=== PATIENT | male | born 1965 | race Two or more races ===

== ENCOUNTER 2016-10-13 16:20 | Inpatient (IN) | payer OTHER ==
[2016-10-13 18:13] VITALS: BMI 22.9
--- NOTE | 2016-10-13 19:06 | HP ---
COWS - Scale Resting Pulse: 1= [place] 81-100 Sweatin= Chills/Flushing Restless Observation: 1= Difficult to Sit Still Pupil Size: 0= Normal to Room Light Bone or Joint Aches: 1= Mild Discomfort Runny Nose/ Eye Tearin= Nasal Congestion GI Upset > 30mins: 2= Nausea/Diarrhea Tremor Observation: 2= Slight Tremor Visible Yawning Observation: 0= None Anxiety or Irritability: 2=Irritable/Anxious Goose Flesh Skin: 3=Piloerection COWS Score: 14 Admission ROS S - HPI Chief Complaint: withdrawal sx Allergies/Adverse Reactions: Allergies Allergy/AdvReac Type Severity Reaction Status Date / Time amoxicillin Allergy Vomiting Verified 10/13/16 19:09 History of Present Illness: 51 years old male with long history of opiate nicotine dependence, has positive ppd - treated, asthma and depression is admitted to detox Exam Limitations: No Limitations - Ebola screening Have you traveled outside of the country in the last 21 days: No Have you had contact with anyone from an Ebola affected area: No Have you been sick,other than usual withdrawal symptoms: No Do you have a fever: No - Review of Systems Constitutional: Loss of Appetite, Changes in sleep, Unintentional Wgt. Loss, Unexplained wgt Loss EENT: reports: No Symptoms Reported Respiratory: reports: No Symptoms reported Cardiac: reports: No Symptoms Reported GI: reports: Nausea, Poor Appetite, Poor Fluid Intake, Abdominal cramping : reports: No Symptoms Reported, Other (kidney stone 2012 - resolved) Musculoskeletal: reports: Back Pain, Joint Pain, Muscle Pain, Neck Pain Neuro: reports: Tremors Endocrine: reports: No Symptoms Reported Hematology: reports: No Symptoms Reported Psychiatric: reports: Judgement Intact, Orientated x3, Depressed Other Systems: Reviewed and Negative Patient History - Patient Medical History Hx Anemia: No Hx Asthma: Yes Hx Chronic Obstructive Pulmonary Disease (COPD): No Hx Cancer: No Hx Cardiac Disorders: No Hx Congestive Heart Failure: No Hx Hypertension: No Hx Hypercholesterolemia: No Hx Pacemaker: No HX Cerebrovascular Accident: No Hx Seizures: No Hx Dementia: No Hx Diabetes: No Hx Gastrointestinal Disorders: No Hx Liver Disease: No Hx Genitourinary Disorders: No Hx Sexually Transmitted Disorders: No Hx Renal Disease (ESRD): No Hx Thyroid Disease: No Hx Human Immunodeficiency Virus (HIV): No Hx Hepatitis C: No Hx Depression: Yes Hx Suicide Attempt: No (denies) Hx Bipolar Disorder: No Hx Schizophrenia: No - Patient Surgical History Past Surgical History: Yes Hx Neurologic Surgery: No Hx Cataract Extraction: No Hx Cardiac Surgery: No Hx Lung Surgery: No Hx Breast Surgery: No Hx Breast Biopsy: No Hx Abdominal Surgery: No Hx Appendectomy: No Hx Cholecystectomy: No Hx Genitourinary Surgery: No Hx Orthopedic Surgery: Yes (jaw fx06/2016) Anesthesia Reaction: No - PPD History Previous Implant?: Yes Documented Results: Positive w/o proof Implanted On Prior [facility] Admission?: No PPD to be Administered?: No - Smoking Cessation Smoking history: Current every day smoker Have you smoked in the past 12 months: Yes Aproximately how many cigarettes per day: 10 Cigars Per Day: 0 Hx Chewing Tobacco Use: No Initiated information on smoking cessation: Yes 'Breaking Loose' booklet given: 10/13/16 - Substance & Tx. History Hx Alcohol Use: No Hx Substance Use: Yes Substance Use Type: Marijuana, Opiates Hx Substance Use Treatment: Yes (08/28/16 [facility] - Substances Abused Heroin Route: Inhalation Frequency: Daily Amount used: 8 bags Age of first use: 46 Date of Last Use: 10/13/16 Family Disease History - Family Disease History Family Disease History: Other: Father (alcohol,), Mother (alcohol, ), Brother (no contact) Admission Physical Exam BHS - Vital Signs Vital Signs: Vital Signs - 24 hr 10/13/16 18:06 Temperature 96.5 F L Pulse Rate 94 H Respiratory 18 Rate Blood Pressure 122/81 - Physical General Appearance: Yes: Appropriately Dressed, Mild Distress, Thin, Tremorous, Irritable, Sweating, Anxious HEENTM: Yes: Hearing grossly Normal, Normal ENT Inspection, Normocephalic, Normal Voice Respiratory: Yes: Chest Non-Tender, Lungs Clear, Normal Breath Sounds, No Respiratory Distress, No Accessory Muscle Use Neck: Yes: Supple, Trachea in good position Breast: Yes: Breasts Symetrical Cardiology: Yes: Regular Rhythm, S1, S2, Tachycardia Abdominal: Yes: Normal Bowel Sounds, Non Tender, Soft Genitourinary: Yes: Within Normal Limits Back: Yes: Normal Inspection Musculoskeletal: Yes: full range of Motion, Gait Steady, Back pain, Muscle Pain Extremities: Yes: Normal Inspection, Normal Range of Motion, Non-Tender, Tremors Neurological: Yes: Fully Oriented, Alert, Motor Strength 5/5, Normal Response, Depressed Affect Integumentary: Yes: Warm Lymphatic: Yes: Within Normal Limits - Diagnostic (1) Asthma Current Visit: Yes Status: Chronic Qualifiers: Asthma severity: mild intermittent Asthma complication type: with status asthmaticus Qualified Code(s): J45.22 - Mild intermittent asthma with status asthmaticus (2) Nicotine dependence Current Visit: Yes Status: Acute Qualifiers: Nicotine product type: cigarettes Substance use status: in withdrawal Qualified Code(s): F17.213 - Nicotine dependence, cigarettes, with withdrawal (3) Opioid dependence with withdrawal Current Visit: Yes Status: Acute (4) Weight loss Current Visit: Yes Status: Acute (5) Positive PPD, treated Current Visit: Yes Status: Resolved (6) Depression (emotion) Current Visit: Yes Status: Suspected Qualifiers: Depression Type: dysthymia Qualified Code(s): F34.1 - Dysthymic disorder Cleared for Admission [facility] - Detox or Rehab [facility] Level of Care: Medically Managed Detox Regimen/Protocol: Methadone [facility] Breath Alcohol Content Breath Alcohol Content: 0 Urine Drug Screen - Results Drug Screen Negative: No Urine Drug Screen Results: THC-Marijuana, OPI-Opiates, MTD-Methadone
[2016-10-13] MEDS ORDERED: guaiFENesin/D-METHORPHAN HB 10 ML UNIT-DOSE CUPS PO PRN (19:14)
[2016-10-13] MEDS ORDERED: LOPERAMIDE HCL 2 MG CAPSULE PO PRN (19:14)
[2016-10-13] MEDS ORDERED: ACETAMINOPHEN 325 MG TABLET (FP) PO PRN (19:14)
[2016-10-13] MEDS ORDERED: MAGNESIUM CITRATE 300 ML BOTTLE PO PRN (19:14)
[2016-10-13] MEDS ORDERED: MAG HYDROX/AL HYDROX/SIMETH 30 ML UNIT-DOSE CUP PO PRN (19:14)
[2016-10-13] MEDS ORDERED: MAGNESIUM HYDROX 2400MG/30ML ORAL SUSPENSION 30 ML CUP PO PRN (19:14)
[2016-10-13] MEDS ORDERED: METHADONE HCL 10 MG TABLET (FOR DETOX USE ONLY) PO ONE ×3 (19:14→23:00)
[2016-10-13] MEDS ORDERED: MENTHOL/PHENOL 1 EACH UD MM PRN (19:14)
[2016-10-13] MEDS ORDERED: IBUPROFEN 400 MG TABLET (FP) PO PRN (19:14)
[2016-10-13] MEDS ORDERED: P-EPHED 60MG/TRIPROLIDI 2.5MG TABLET PO PRN (19:14)
[2016-10-13] MEDS ORDERED: ALBUTEROL SO4 6.7 GM HFA INHALER IH PRN (19:16)
[2016-10-13] MEDS: diphenhydrAMINE HCL 50 MG CAPSULE PO PRN (22:28)
[2016-10-13] MEDS: diazePAM 5 MG TABLET PO PRN (22:28)
[2016-10-13] MEDS: THIAMINE HCL 100 MG TABLET (FP) PO SCH (22:52)
[2016-10-13] MEDS: NICOTINE POLACRILEX 2 MG GUM BUC PRN (23:05)
[2016-10-13 23:07] LABS: URINE APPEARANCE SLCLOUDY; URINE BILIRUBIN NEGATIVE (NEGATIVE); URINE BLOOD NEGATIVE (NEGATIVE); URINE COLOR AMBER; URINE GLUCOSE (UA) NEGATIVE (NEGATIVE); URINE KETONE TRACE (NEGATIVE); URINE LEUK ESTERASE NEGATIVE (NEGATIVE); URINE NITRITE NEGATIVE (NEGATIVE)
[2016-10-13 23:19] LABS: URINE PROTEIN 1+ (NEGATIVE)
[2016-10-13 23:31] LABS: CALCIUM OXALATE CRYSTALS RARE /hpf (NONE SEEN); URINE MUCUS MANY; URINE RBC 19 /hpf (0-3); URINE WBC 1 /hpf (3-5)
--- NOTE | 2016-10-14 09:40 | CONSULT ---
[facility] Psychiatric Consult - Data Date of interview: 10/14/16 Admission source: [facility] Identifying data: This is 51 years old male with psychiatric hospitalization history, intoxicated with: Alcohol, Heroin, Nicotine, with history of Xanax and Cannabis abuse. Substance Abuse History: - Smoking Cessation. Smoking history: Current every day smoker. Have you smoked in the past 12 months: Yes. Aproximately how many cigarettes per day: 10. Cigars Per Day: 0. Hx Chewing Tobacco Use: No. Initiated information on smoking cessation: Yes. 'Breaking Loose' booklet given : 10/13/16. - Substance & Tx. History. Hx Alcohol Use: No. Hx Substance Use: Yes. Substance Use Type: Marijuana, Opiates. Hx Substance Use Treatment: Yes ( 08/28/16 [facility]). - Substances Abused. Heroin. Route: Inhalation. Frequency: Daily. Amount used: 8 bags. Age of first use: 46. Date of Last Use : 10/13/16 Medical History: Weight loss history, Asthma, HIV+, PPD+ history Psychiatric History: Patient reprotsd hoistory of depression, insomnia, reports most recent psychiatrioc admission on 2010 at [facility] for safety, reports taking prior to admission: Seroquel 100mg po qhs Physical/Sexual Abuse/Trauma History: Denies Additional Comment: Seroquel 100mg po qhs Mental Status Exam - Mental Status Exam Alert and Oriented to: Person Cognitive Function: Fair Mood: Sad Affect: Flat Patient Behavior: Sedated Speech Pattern: Delayed Voice Loudness: Mildly Soft/Quiet Thought Process: Circumstantial Thought Disorder: Being Controlled Hallucinations: Denies Suicidal Ideation: Denies Homicidal Ideation: Denies Insight/Judgement: Fair Sleep: Difficulty falling asleep Appetite: Weight loss Muscle strength/Tone: Mild Hypotonicity Gait/Station: Shuffling Additional Comments: Seroquel 100mg po qhs Psychiatric Findings - Problem List ([place] 1, 2,3) (1) Nicotine dependence Current Visit: Yes Status: Acute Qualifiers: Nicotine product type: cigarettes Substance use status: in withdrawal Qualified Code(s): F17.213 - Nicotine dependence, cigarettes, with withdrawal (2) Opioid dependence with withdrawal Current Visit: Yes Status: Acute (3) Depression (emotion) Current Visit: Yes Status: Suspected Qualifiers: Depression Type: dysthymia Qualified Code(s): F34.1 - Dysthymic disorder (4) Alcohol dependence with uncomplicated withdrawal Current Visit: No Status: Chronic (5) Cannabis dependence Current Visit: No Status: Chronic (6) Sedative, hypnotic or anxiolytic dependence with withdrawal, uncomplicated Current Visit: No Status: Chronic (7) Drug-induced mood disorder Current Visit: Yes Status: Acute - Initial Treatment Plan Initial Treatment Plan: Seroquel 100mg po qhs
[2016-10-14] MEDS ORDERED: METHADONE HCL 10 MG TABLET (FOR DETOX USE ONLY) PO ONE (10:00)
[2016-10-14] MEDS: PRENATAL VITAMINS W/ FOLIC ACID TABLET (FP) PO SCH (10:05)
[2016-10-14] MEDS: NICOTINE 14 MG/24 HOURS TOPICAL PATCH TD SCH (10:06)
[2016-10-14] MEDS: NICOTINE POLACRILEX 2 MG GUM BUC PRN ×4 (10:06→20:57)
[2016-10-14 10:07] LABS: MCH 30.1 pg (25.7-33.7); MCHC 33.7 g/dl (32.0-35.9); MEAN CELL VOLUME 89.3 fl (80-96); MEAN PLT VOLUME 7.6 fl (7.5-11.1); PLATELET COUNT 229 K/MM3 (134-434); RDW 13.6 % (11.9-15.9); WHITE BLOOD COUNT 4.9 K/mm3 (4.0-10.0)
[2016-10-14 10:28] LABS: ALBUMIN 3.5 g/dl (3.4-5.0); ALK PHOS 71 U/L (45-117); ANION GAP 8 (8-16); BILIRUBIN,TOTAL 0.7 mg/dL (0.2-1.0); CALCIUM 8.7 mg/dL (8.5-10.1); CO2 28 mmol/L (21-32); CREATININE 0.9 mg/dL (0.7-1.3); GLUCOSE,RANDOM 90 mg/dL (74-106); SGOT/AST 22 U/L (15-37); SGPT/ALT 25 U/L (12-78); TOT PROT 6.8 g/dl (6.4-8.2)
--- NOTE | 2016-10-14 11:29 | PN ---
BHS COWS - Scale Resting Pulse: 1= [place] 81-100 Sweatin= Chills/Flushing Restless Observation: 1= Difficult to Sit Still Pupil Size: 1= Pupils >than Normal Bone or Joint Aches: 1= Mild Discomfort Runny Nose/ Eye Tearin= Nasal Congestion GI Upset > 30mins: 2= Nausea/Diarrhea Tremor Observation of Outstretched Hands: 2= Slight Tremor Visible Yawning Observation: 1= 1-2x During Session Anxiety or Irritability: 2=Irritable/Anxious Goose Flesh Skin: 3=Piloerection COWS Score: 16 BHS Progress Note (SOAP) Subjective: nausea, sweats, interrupted sleep, anxiety, tremors, body aches Objective: 10/14/16 11:28 Vital Signs - 8 hr 10/14/16 10/14/16 10/14/16 03:30 06:21 09:46 Temperature 96.8 F L 97.9 F Pulse Rate 70 84 Respiratory 18 18 20 Rate Blood Pressure 128/78 123/71 Laboratory Tests 10/13/16 10/14/16 10/14/16 22:40 07:00 07:00 WBC 4.9 RBC 4.68 Hgb 14.1 Hct 41.8 MCV 89.3 MCH 30.1 MCHC 33.7 RDW 13.6 Plt Count 229 MPV 7.6 D Sodium 138 Potassium 3.7 Chloride 102 Carbon Dioxide 28 Anion Gap 8 BUN 15 D Creatinine 0.9 Creat Clearance w eGFR > 60 Random Glucose 90 Calcium 8.7 Total Bilirubin 0.7 D AST 22 D ALT 25 D Alkaline Phosphatase 71 Total Protein 6.8 Albumin 3.5 Urine Color Barb Urine Appearance Slcloudy Urine pH 5.0 Ur Specific [place] >= 1.030 H Urine Protein 1+ H Urine Glucose (UA) Negative Urine Ketones Trace H Urine Blood Negative Urine Nitrite Negative Urine Bilirubin Negative Urine Urobilinogen 2.0 Ur Leukocyte Esterase Negative Urine RBC 19 Urine WBC 1 Calcium Oxalate Crystal Rare Urine Mucus Many Assessment: 10/14/16 11:28 withdrawal sx, Plan: cont detox, fluids, encourage ambulation
--- NOTE | 2016-10-14 12:43 | EKG ---
Test Reason : Blood Pressure : / mmHG Vent. Rate : 075 BPM Atrial Rate : 075 BPM P-R Int : 188 ms QRS Dur : 086 ms QT Int : 370 ms P-R-T Axes : 066 088 058 degrees QTc Int : 413 ms NORMAL SINUS RHYTHM NORMAL ECG NO PREVIOUS ECGS AVAILABLE Confirmed by ISMAEL LY, MINDY ([id number]) on 10/14/2016 12:42:58 PM Referred By: Saeid Jason Confirmed By:MINDY GUEVARA MD
[2016-10-14] MEDS: diazePAM 5 MG TABLET PO PRN (22:03)
[2016-10-14] MEDS: QUEtiapine FUMARATE 100 MG TABLET (FP) PO SCH (22:03)
[2016-10-14] MEDS: THIAMINE HCL 100 MG TABLET (FP) PO SCH (22:03)
[2016-10-15] MEDS ORDERED: METHADONE HCL 5 MG TABLET (FOR DETOX USE ONLY) PO ONE (10:00)
[2016-10-15] MEDS: PRENATAL VITAMINS W/ FOLIC ACID TABLET (FP) PO SCH (10:05)
[2016-10-15] MEDS: NICOTINE 14 MG/24 HOURS TOPICAL PATCH TD SCH (10:06)
[2016-10-15] MEDS: diazePAM 5 MG TABLET PO PRN (10:06)
[2016-10-15] MEDS: NICOTINE POLACRILEX 2 MG GUM BUC PRN ×3 (11:36→20:10)
--- NOTE | 2016-10-15 12:59 | PN ---
BHS COWS - Scale Resting Pulse: 1= [place] 81-100 Sweatin= Chills/Flushing Restless Observation: 1= Difficult to Sit Still Pupil Size: 1= Pupils >than Normal Bone or Joint Aches: 1= Mild Discomfort Runny Nose/ Eye Tearin= Nasal Congestion GI Upset > 30mins: 2= Nausea/Diarrhea Tremor Observation of Outstretched Hands: 1= Tremor [place], Not Seen Yawning Observation: 1= 1-2x During Session Anxiety or Irritability: 2=Irritable/Anxious Goose Flesh Skin: 3=Piloerection COWS Score: 15 BHS Progress Note (SOAP) Subjective: nausea, sweats, interrutped sleep, anxiety, tremors Objective: 10/15/16 12:58 Vital Signs - 24 hr 10/14/16 10/14/16 10/14/16 14:14 16:55 22:00 Temperature 97.7 F 97.7 F 97.7 F Pulse Rate 82 77 74 Respiratory 20 18 18 Rate Blood Pressure 115/71 132/79 122/78 10/15/16 10/15/16 10/15/16 00:30 03:30 06:17 Temperature 97.6 F Pulse Rate 75 Respiratory 18 18 18 Rate Blood Pressure 132/73 10/15/16 09:28 Temperature 97.2 F L Pulse Rate 87 Respiratory 18 Rate Blood Pressure 115/76 Laboratory Tests 10/13/16 10/13/16 10/14/16 07:00 22:40 07:00 WBC 4.9 RBC 4.68 Hgb 14.1 Hct 41.8 MCV 89.3 MCH 30.1 MCHC 33.7 RDW 13.6 Plt Count 229 MPV 7.6 D Sodium Potassium Chloride Carbon Dioxide Anion Gap BUN Creatinine Creat Clearance w eGFR Random Glucose Calcium Total Bilirubin AST ALT Alkaline Phosphatase Total Protein Albumin Urine Color Barb Urine Appearance Slcloudy Urine pH 5.0 Ur Specific [place] >= 1.030 H Urine Protein 1+ H Urine Glucose (UA) Negative Urine Ketones Trace H Urine Blood Negative Urine Nitrite Negative Urine Bilirubin Negative Urine Urobilinogen 2.0 Ur Leukocyte Esterase Negative Urine RBC 19 Urine WBC 1 Calcium Oxalate Crystal Rare Urine Mucus Many RPR Titer Hepatitis C Antibody <0.1 10/14/16 10/14/16 07:00 07:00 WBC RBC Hgb Hct MCV MCH MCHC RDW Plt Count MPV Sodium 138 Potassium 3.7 Chloride 102 Carbon Dioxide 28 Anion Gap 8 BUN 15 D Creatinine 0.9 Creat Clearance w eGFR > 60 Random Glucose 90 Calcium 8.7 Total Bilirubin 0.7 D AST 22 D ALT 25 D Alkaline Phosphatase 71 Total Protein 6.8 Albumin 3.5 Urine Color Urine Appearance Urine pH Ur Specific [place] Urine Protein Urine Glucose (UA) Urine Ketones Urine Blood Urine Nitrite Urine Bilirubin Urine Urobilinogen Ur Leukocyte Esterase Urine RBC Urine WBC Calcium Oxalate Crystal Urine Mucus RPR Titer Nonreactive Hepatitis C Antibody Assessment: 10/15/16 12:58 withdrwal sx Plan: cont detox
[2016-10-15] MEDS: QUEtiapine FUMARATE 100 MG TABLET (FP) PO SCH (22:07)
[2016-10-15] MEDS: THIAMINE HCL 100 MG TABLET (FP) PO SCH (22:07)
[2016-10-16] MEDS: NICOTINE POLACRILEX 2 MG GUM BUC PRN ×4 (08:23→22:04)
[2016-10-16] MEDS ORDERED: METHADONE HCL 5 MG TABLET (FOR DETOX USE ONLY) PO ONE (10:00)
[2016-10-16] MEDS: PRENATAL VITAMINS W/ FOLIC ACID TABLET (FP) PO SCH (10:10)
[2016-10-16] MEDS: NICOTINE 14 MG/24 HOURS TOPICAL PATCH TD SCH (10:10)
[2016-10-16] MEDS: diazePAM 5 MG TABLET PO PRN ×3 (10:10→18:57)
--- NOTE | 2016-10-16 11:06 | PN ---
BHS Progress Note (SOAP) Subjective: ALERT,IRRITABLE,ANXIOUS,INTERRUPTED SLEEP,TREMOR Objective: 10/16/16 11:05 10/16/16 11:05 Vital Signs Temperature 97.3 F L 10/16/16 09:56 Pulse Rate 86 10/16/16 09:56 Respiratory Rate 18 10/16/16 09:56 Blood Pressure 129/78 10/16/16 09:56 O2 Sat by Pulse Oximetry (%) Assessment: 10/16/16 11:05 WITHDRAWAL SYMPTOM Plan: CONTINUE DETOX
[2016-10-16] MEDS: QUEtiapine FUMARATE 100 MG TABLET (FP) PO SCH (22:03)
[2016-10-16] MEDS: diphenhydrAMINE HCL 50 MG CAPSULE PO PRN (22:03)
[2016-10-16] MEDS: THIAMINE HCL 100 MG TABLET (FP) PO SCH (22:03)
[2016-10-17] MEDS: NICOTINE POLACRILEX 2 MG GUM BUC PRN ×3 (07:34→20:43)
[2016-10-17] MEDS ORDERED: METHADONE HCL 10 MG TABLET (FOR DETOX USE ONLY) PO ONE (10:00)
[2016-10-17] MEDS: PRENATAL VITAMINS W/ FOLIC ACID TABLET (FP) PO SCH (10:04)
[2016-10-17] MEDS: NICOTINE 14 MG/24 HOURS TOPICAL PATCH TD SCH (10:04)
--- NOTE | 2016-10-17 10:44 | PN ---
BHS Progress Note (SOAP) Subjective: nausea, sweats, interrupted sleep, anxiety, tremors Objective: 10/17/16 10:43 Vital Signs - 8 hr 10/17/16 10/17/16 10/17/16 03:30 06:00 09:55 Temperature 96.8 F L 98.5 F Pulse Rate 86 97 H Respiratory 18 18 18 Rate Blood Pressure 119/75 128/83 Laboratory Tests 10/13/16 10/13/16 10/14/16 07:00 22:40 07:00 WBC 4.9 RBC 4.68 Hgb 14.1 Hct 41.8 MCV 89.3 MCH 30.1 MCHC 33.7 RDW 13.6 Plt Count 229 MPV 7.6 D Sodium Potassium Chloride Carbon Dioxide Anion Gap BUN Creatinine Creat Clearance w eGFR Random Glucose Calcium Total Bilirubin AST ALT Alkaline Phosphatase Total Protein Albumin Urine Color Barb Urine Appearance Slcloudy Urine pH 5.0 Ur Specific [place] >= 1.030 H Urine Protein 1+ H Urine Glucose (UA) Negative Urine Ketones Trace H Urine Blood Negative Urine Nitrite Negative Urine Bilirubin Negative Urine Urobilinogen 2.0 Ur Leukocyte Esterase Negative Urine RBC 19 Urine WBC 1 Calcium Oxalate Crystal Rare Urine Mucus Many RPR Titer Hepatitis C Antibody <0.1 10/14/16 10/14/16 07:00 07:00 WBC RBC Hgb Hct MCV MCH MCHC RDW Plt Count MPV Sodium 138 Potassium 3.7 Chloride 102 Carbon Dioxide 28 Anion Gap 8 BUN 15 D Creatinine 0.9 Creat Clearance w eGFR > 60 Random Glucose 90 Calcium 8.7 Total Bilirubin 0.7 D AST 22 D ALT 25 D Alkaline Phosphatase 71 Total Protein 6.8 Albumin 3.5 Urine Color Urine Appearance Urine pH Ur Specific [place] Urine Protein Urine Glucose (UA) Urine Ketones Urine Blood Urine Nitrite Urine Bilirubin Urine Urobilinogen Ur Leukocyte Esterase Urine RBC Urine WBC Calcium Oxalate Crystal Urine Mucus RPR Titer Nonreactive Hepatitis C Antibody Assessment: 10/17/16 10:43 withdrawal sx Plan: cont detox, fluids
[2016-10-17] MEDS: QUEtiapine FUMARATE 100 MG TABLET (FP) PO SCH (22:00)
[2016-10-17] MEDS: THIAMINE HCL 100 MG TABLET (FP) PO SCH (22:00)
[2016-10-17] MEDS: diphenhydrAMINE HCL 50 MG CAPSULE PO PRN (22:01)
[2016-10-18] MEDS: NICOTINE POLACRILEX 2 MG GUM BUC PRN ×2 (05:40→10:13)
[2016-10-18] MEDS ORDERED: METHADONE HCL 5 MG TABLET (FOR DETOX USE ONLY) PO ONE (06:00)
--- NOTE | 2016-10-18 08:50 | DS ---
[facility] Detox Discharge Summary Admission Date: 10/13/16 Discharge Date: 10/18/16 - History Present History: Alcohol Dependence, Cannabis Dependence, Opioid Dependence, Sedative Dependence Pertinent Past History: HIV, anxiety, depression, insomnia, nicotine dependence, asthma - Physical Exam Results Vital Signs: Vital Signs Temperature 97.7 F 10/18/16 06:11 Pulse Rate 88 10/18/16 06:11 Respiratory Rate 18 10/18/16 06:11 Blood Pressure 135/75 10/18/16 06:11 O2 Sat by Pulse Oximetry (%) Laboratory Tests 10/13/16 10/13/16 10/14/16 07:00 22:40 07:00 WBC 4.9 RBC 4.68 Hgb 14.1 Hct 41.8 MCV 89.3 MCH 30.1 MCHC 33.7 RDW 13.6 Plt Count 229 MPV 7.6 D Sodium Potassium Chloride Carbon Dioxide Anion Gap BUN Creatinine Creat Clearance w eGFR Random Glucose Calcium Total Bilirubin AST ALT Alkaline Phosphatase Total Protein Albumin Urine Color Barb Urine Appearance Slcloudy Urine pH 5.0 Ur Specific [place] >= 1.030 H Urine Protein 1+ H Urine Glucose (UA) Negative Urine Ketones Trace H Urine Blood Negative Urine Nitrite Negative Urine Bilirubin Negative Urine Urobilinogen 2.0 Ur Leukocyte Esterase Negative Urine RBC 19 Urine WBC 1 Calcium Oxalate Crystal Rare Urine Mucus Many RPR Titer Hepatitis C Antibody <0.1 10/14/16 10/14/16 07:00 07:00 WBC RBC Hgb Hct MCV MCH MCHC RDW Plt Count MPV Sodium 138 Potassium 3.7 Chloride 102 Carbon Dioxide 28 Anion Gap 8 BUN 15 D Creatinine 0.9 Creat Clearance w eGFR > 60 Random Glucose 90 Calcium 8.7 Total Bilirubin 0.7 D AST 22 D ALT 25 D Alkaline Phosphatase 71 Total Protein 6.8 Albumin 3.5 Urine Color Urine Appearance Urine pH Ur Specific [place] Urine Protein Urine Glucose (UA) Urine Ketones Urine Blood Urine Nitrite Urine Bilirubin Urine Urobilinogen Ur Leukocyte Esterase Urine RBC Urine WBC Calcium Oxalate Crystal Urine Mucus RPR Titer Nonreactive Hepatitis C Antibody Pertinent Admission Physical Exam Findings: withdrawal sx - Treatment Hospital Course: Detox Protocol Followed, Detoxed Safely, Responded well, Discharged Condition Good, Rehab Referral Accepted - Medication Discharge Medications: Ambulatory Orders Quetiapine Fumarate [Seroquel] 100 mg PO HS #30 tablet 10/14/16 Levalbuterol Tartrate [Xopenex Hfa] 15 gm IH PRN #1 aer.[email or web address] 10/18/16 - Diagnosis (1) Drug-induced mood disorder Current Visit: Yes Status: Acute (2) Nicotine dependence Current Visit: Yes Status: Chronic Qualifiers: Nicotine product type: cigarettes Substance use status: in withdrawal Qualified Code(s): F17.213 - Nicotine dependence, cigarettes, with withdrawal (3) Opioid dependence with withdrawal Current Visit: Yes Status: Chronic (4) Asthma Current Visit: Yes Status: Chronic Qualifiers: Asthma severity: mild intermittent Asthma complication type: with status asthmaticus Qualified Code(s): J45.22 - Mild intermittent asthma with status asthmaticus (5) Positive PPD, treated Current Visit: Yes Status: Resolved (6) Alcohol dependence with uncomplicated withdrawal Current Visit: No Status: Chronic (7) Cannabis dependence Current Visit: No Status: Chronic (8) HIV (human immunodeficiency virus infection) Current Visit: Yes Status: Chronic (9) Sedative, hypnotic or anxiolytic dependence with withdrawal, uncomplicated Current Visit: Yes Status: Chronic - AMA Did Patient Leave Against Medical Advice: No
[2016-10-18] MEDS: PRENATAL VITAMINS W/ FOLIC ACID TABLET (FP) PO SCH (10:11)
[2016-10-18] MEDS: NICOTINE 14 MG/24 HOURS TOPICAL PATCH TD SCH (10:11)
[2016-10-18 10:16] VITALS: BP 130/86; PULSE 98; TEMP 97.5
== END 2016-10-18 10:35 | disposition home or self-care (01) | DRG 773 ==
LOC: YASAS 16:20 → Y6N 20:31
PROVIDERS: ADMIT Internal Medicine Addiction Medicine; ATTEND Internal Medicine Addiction Medicine
PROC: HZ2ZZZZ Detoxification Services for Substance Abuse Treatment (ICD-10-PCS; principal; 2016-10-13)
DX: F11.23 Opioid dependence with withdrawal (principal); F13.230 Sedative, hypnotic or anxiolytic dependence with withdrawal, uncomplicated; F10.230 Alcohol dependence with withdrawal, uncomplicated; F12.20 Cannabis dependence, uncomplicated; F17.213 Nicotine dependence, cigarettes, with withdrawal; F19.24 Other psychoactive substance dependence with psychoactive substance-induced mood disorder; F34.1 Dysthymic disorder; J45.22 Mild intermittent asthma with status asthmaticus; Z21 Asymptomatic human immunodeficiency virus [HIV] infection status; R76.11 Nonspecific reaction to tuberculin skin test without active tuberculosis; Z88.1 Allergy status to other antibiotic agents; Z87.898 Personal history of other specified conditions
CPT/HCPCS: 36415; 71020-TC; 80053; 81003; 81015; 85027; 86593; 86803; 93005; 93010

== ENCOUNTER 2016-10-21 19:07 | Inpatient (IN) | payer OTHER ==
[2016-10-21 19:36] VITALS: BMI 24.5
--- NOTE | 2016-10-21 20:48 | HP ---
[facility] Rehab Assess/Revision - Admission History Admitted to Rehab from: [facility] Date of Admission to Rehab: 10/21/16 - Vital signs Vital Signs: Vital Signs Period Temp Pulse Resp BP Sys/Lyles Pulse Ox Last 24 Hr 96.3 F 88 18 156/103 - Findings Detox History & Physical reviewed: Yes Concur with findings: Yes Comments/Additional Findings: completed detox 10/18/16, admitted to rehab 10/21/16, hiv - no treatment, cigarettes - 10 daily, long history of asthma - treated with ventolin prn.
[2016-10-21] MEDS ORDERED: IBUPROFEN 400 MG TABLET (FP) PO PRN (21:35)
[2016-10-21] MEDS ORDERED: ACETAMINOPHEN 325 MG TABLET (FP) PO PRN (21:35)
[2016-10-21] MEDS ORDERED: hydrOXYzine PAMOATE 50 MG CAPSULE (FP) PO PRN (21:35)
[2016-10-21] MEDS ORDERED: MAGNESIUM HYDROX 2400MG/30ML ORAL SUSPENSION 30 ML CUP PO PRN (21:35)
[2016-10-21] MEDS ORDERED: P-EPHED 60MG/TRIPROLIDI 2.5MG TABLET PO PRN (21:35)
[2016-10-21] MEDS ORDERED: MENTHOL/PHENOL 1 EACH UD MM PRN (21:35)
[2016-10-21] MEDS ORDERED: guaiFENesin/D-METHORPHAN HB 10 ML UNIT-DOSE CUPS PO PRN (21:35)
[2016-10-21] MEDS ORDERED: MAG HYDROX/AL HYDROX/SIMETH 30 ML UNIT-DOSE CUP PO PRN (21:35)
[2016-10-21] MEDS ORDERED: MAGNESIUM CITRATE 300 ML BOTTLE PO PRN (21:35)
[2016-10-21] MEDS ORDERED: LOPERAMIDE HCL 2 MG CAPSULE PO PRN (21:35)
[2016-10-21] MEDS ORDERED: ALBUTEROL SO4 6.7 GM HFA INHALER IH PRN (21:37)
[2016-10-21] MEDS: diphenhydrAMINE HCL 50 MG CAPSULE PO PRN (23:49)
[2016-10-21] MEDS: THIAMINE HCL 100 MG TABLET (FP) PO SCH (23:49)
[2016-10-22] MEDS: PRENATAL VITAMINS W/ FOLIC ACID TABLET (FP) PO SCH (10:18)
[2016-10-22] MEDS: NICOTINE POLACRILEX 2 MG GUM BC PRN (10:19)
[2016-10-22] MEDS: NICOTINE 14 MG/24 HOURS TOPICAL PATCH TD SCH (10:20)
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
--- NOTE | 2016-10-22 12:32 | EKG ---
Test Reason : Blood Pressure : / mmHG Vent. Rate : 070 BPM Atrial Rate : 070 BPM P-R Int : 198 ms QRS Dur : 086 ms QT Int : 384 ms P-R-T Axes : 063 084 060 degrees QTc Int : 414 ms NORMAL SINUS RHYTHM NORMAL ECG WHEN COMPARED WITH ECG OF 13-OCT-2016 21:33, NO SIGNIFICANT CHANGE WAS FOUND Confirmed by FABIAN MIKE MD ([id number]) on 10/22/2016 12:31:36 PM Referred By: Confirmed By:FABIAN MIKE MD
[2016-10-22] MEDS: diphenhydrAMINE HCL 50 MG CAPSULE PO PRN (21:16)
[2016-10-22] MEDS: traZODone HCL 100 MG TABLET (FP) PO SCH (21:16)
[2016-10-22] MEDS: THIAMINE HCL 100 MG TABLET (FP) PO SCH (21:16)
[2016-10-23] MEDS: PRENATAL VITAMINS W/ FOLIC ACID TABLET (FP) PO SCH (10:08)
[2016-10-23] MEDS: NICOTINE 14 MG/24 HOURS TOPICAL PATCH TD SCH (10:18)
[2016-10-23] MEDS ORDERED: CYCLOBENZAPRINE HCL 10 MG TABLET (FP) PO PRN (14:05)
[2016-10-23] MEDS ORDERED: cloNIDine HCL 0.1 MG TABLET PO ONE (15:00)
[2016-10-23] MEDS: traZODone HCL 100 MG TABLET (FP) PO SCH (21:06)
[2016-10-23] MEDS: diphenhydrAMINE HCL 50 MG CAPSULE PO PRN (21:06)
[2016-10-23] MEDS: THIAMINE HCL 100 MG TABLET (FP) PO SCH (21:06)
[2016-10-23] MEDS: cloNIDine HCL 0.1 MG TABLET PO SCH (21:06)
[2016-10-23] MEDS: NICOTINE POLACRILEX 2 MG GUM BC PRN (21:09)
[2016-10-24 06:57] VITALS: TEMP 98.7
[2016-10-24] MEDS ORDERED: PATIENT'S OWN MEDICATION (NON-FORMULARY) (Darunavir Ethanolate [Prezista -] 800 MG) PO SCH (10:00)
[2016-10-24 10:03] VITALS: BP 141/99; PULSE 94
[2016-10-24] MEDS: NICOTINE POLACRILEX 2 MG GUM BC PRN (10:03)
[2016-10-24] MEDS: PRENATAL VITAMINS W/ FOLIC ACID TABLET (FP) PO SCH (10:03)
[2016-10-24] MEDS: NICOTINE 14 MG/24 HOURS TOPICAL PATCH TD SCH (10:03)
[2016-10-24] MEDS: cloNIDine HCL 0.1 MG TABLET PO SCH (10:03)
--- NOTE | 2016-10-24 15:35 | PN ---
[facility] Progress Note Note: Psychiatry Attending's note : Called earlier by nurse Kenna Portillo. Issue : Mr Garcia decided to leave the program. Patient was instructed to await psychiatric evaluation. Refused and left the unit.Refer to staff's notes for details. Declined scripts.
== END 2016-10-24 12:45 | disposition left against medical advice (07) | DRG 770 ==
LOC: YASAS 19:07 → Y3W 20:38
PROVIDERS: ADMIT Psychiatry & Neurology Psychiatry; ATTEND Psychiatry & Neurology Psychiatry
PROC: HZ42ZZZ Group Counseling for Substance Abuse Treatment, Cognitive-Behavioral (ICD-10-PCS; principal; 2016-10-21)
DX: F11.20 Opioid dependence, uncomplicated (principal); F12.20 Cannabis dependence, uncomplicated; F17.213 Nicotine dependence, cigarettes, with withdrawal; F19.24 Other psychoactive substance dependence with psychoactive substance-induced mood disorder; F19.282 Other psychoactive substance dependence with psychoactive substance-induced sleep disorder; J45.22 Mild intermittent asthma with status asthmaticus; Z21 Asymptomatic human immunodeficiency virus [HIV] infection status
CPT/HCPCS: 93005; 93010

== ENCOUNTER 2017-01-28 08:14 | Inpatient (IN) | payer OTHER ==
[2017-01-28 09:39] VITALS: BMI 23.5
--- NOTE | 2017-01-28 12:45 | HP ---
COWS - Scale Resting Pulse: 1= OK 81-100 Sweatin=Flushed/Facial Moisture Restless Observation: 1= Difficult to Sit Still Pupil Size: 0= Normal to Room Light Bone or Joint Aches: 2= Severe Diffuse Aches Runny Nose/ Eye Tearin= Runny Nose/Eyes GI Upset > 30mins: 2= Nausea/Diarrhea Tremor Observation: 2= Slight Tremor Visible Yawning Observation: 2= >3x During Session Anxiety or Irritability: 2=Irritable/Anxious Goose Flesh Skin: 3=Piloerection COWS Score: 19 CIWA Score - CIWA Score Nausea/Vomitin-Mild Nausea/No Vomiting Muscle Tremors: 4-Moderate,w/Arms Extend Anxiety: 4-Mod. Anxious/Guarded Agitation: 4-Moderately Restless Paroxysmal Sweats: 3 Orientation: 0-Oriented Tacttile Disturbances: 0-None Auditory Disturbances: 0-None Visual Disturbances: 0-None Headache: 0-None Present CIWA-Ar Total Score: 16 Admission ROS S - HPI Chief Complaint: I am here for detox and get it right. Allergies/Adverse Reactions: Allergies Allergy/AdvReac Type Severity Reaction Status Date / Time amoxicillin Allergy Vomiting Verified 01/28/17 09:59 History of Present Illness: pt is a 51yr old male with a history of alcohol and heroin dependence seeking detox for treatment. Exam Limitations: No Limitations - Ebola screening Have you traveled outside of the country in the last 21 days: No Have you had contact with anyone from an Ebola affected area: No Have you been sick,other than usual withdrawal symptoms: No - Review of Systems Constitutional: Chills, Diaphoresis, Loss of Appetite, Night Sweats, Changes in sleep, Unintentional Wgt. Loss EENT: reports: Tearing, Nose Congestion Respiratory: reports: No Symptoms reported Cardiac: reports: Lightheadedness GI: reports: Constipated, Diarrhea, Poor Appetite, Poor Fluid Intake, Indigestion : reports: No Symptoms Reported Musculoskeletal: reports: Back Pain Integumentary: reports: Flushing, Sweating Neuro: reports: Headache, Tingling, Tremors Endocrine: reports: Excessive Sweating, Flushing, Increased Hunger Hematology: reports: No Symptoms Reported Psychiatric: reports: Judgement Intact, Mood/Affect Appropiate, Orientated x3, Agitated, Anxious Other Systems: Reviewed and Negative Patient History - Patient Medical History Hx Anemia: No Hx Asthma: Yes Hx Chronic Obstructive Pulmonary Disease (COPD): No Hx Cancer: No Hx Cardiac Disorders: No Hx Congestive Heart Failure: No Hx Hypertension: No Hx Hypercholesterolemia: No Hx Pacemaker: No HX Cerebrovascular Accident: No Hx Seizures: No Hx Dementia: No Hx Diabetes: No Hx Gastrointestinal Disorders: No Hx Liver Disease: No Hx Genitourinary Disorders: No Hx Sexually Transmitted Disorders: No Hx Renal Disease (ESRD): No Hx Thyroid Disease: No Hx Human Immunodeficiency Virus (HIV): Yes (on prezista and gemboya) Hx Hepatitis C: No (negative) Hx Depression: Yes Hx Suicide Attempt: No Hx Bipolar Disorder: No Hx Schizophrenia: No - Patient Surgical History Past Surgical History: Yes Hx Neurologic Surgery: No Hx Cataract Extraction: No Hx Cardiac Surgery: No Hx Lung Surgery: No Hx Breast Surgery: No Hx Breast Biopsy: No Hx Abdominal Surgery: No Hx Appendectomy: No Hx Cholecystectomy: No Hx Genitourinary Surgery: No Hx Section: No Hx Orthopedic Surgery: Yes (jaw fx06/2016) Anesthesia Reaction: No - PPD History Previous Implant?: Yes Documented Results: Positive w/proof Implanted On Prior R Admission?: No PPD to be Administered?: No - Reproductive History Patient is a Female of Child Bearing Age (11 -55 yrs old): No - Smoking Cessation Smoking history: Current every day smoker Have you smoked in the past 12 months: Yes Aproximately how many cigarettes per day: 20 Cigars Per Day: 0 Hx Chewing Tobacco Use: No Initiated information on smoking cessation: Yes 'Breaking Loose' booklet given: 01/28/17 - Substance & Tx. History Hx Alcohol Use: Yes Hx Substance Use: Yes Substance Use Type: Alcohol, Heroin Hx Substance Use Treatment: Yes - Substances Abused Heroin Route: Inhalation Frequency: Daily Amount used: 20 bags Age of first use: 38 Date of Last Use: 01/27/17 Marijuana/Hashish Route: Smoking Frequency: Daily Amount used: $20 Age of first use: 16 Date of Last Use: 01/27/17 Alcohol Route: Oral Frequency: Daily Amount used: six cans of beer 24oz Age of first use: 15 Date of Last Use: 01/27/17 Family Disease History - Family Disease History Family Disease History: Other: Father (alcohol,), Mother (alcohol, ), Brother (no contact) Admission Physical Exam [facility] - Vital Signs Vital Signs: Vital Signs - 24 hr 01/28/17 09:34 Temperature 96.2 F L Pulse Rate 81 Respiratory 16 Rate Blood Pressure 136/78 - Physical General Appearance: Yes: Appropriately Dressed, Moderate Distress, Tremorous, Irritable, Sweating, Anxious HEENTM: Yes: Hearing grossly Normal, Normal Voice, Nasal Congestion, Rhinorrhea Respiratory: Yes: Lungs Clear, Normal Breath Sounds, No Respiratory Distress Neck: Yes: No masses,lesions,Nodules Breast: Yes: Within Normal Limits Cardiology: Yes: Regular Rhythm, Regular Rate, S1, S2 Abdominal: Yes: Normal Bowel Sounds Genitourinary: Yes: Within Normal Limits Back: Yes: Normal Inspection Musculoskeletal: Yes: full range of Motion, Back pain Extremities: Yes: Normal Capillary Refill, Normal Inspection, Tremors Neurological: Yes: Fully Oriented, Alert, Normal Response Integumentary: Yes: Normal Color, Diaphoresis Lymphatic: Yes: Within Normal Limits - Diagnostic (1) Alcohol dependence with uncomplicated withdrawal Current Visit: Yes Status: Chronic (2) Cannabis dependence Current Visit: Yes Status: Chronic (3) HIV (human immunodeficiency virus infection) Current Visit: Yes Status: Chronic Comment: pt has his own medication with him. (4) Nicotine dependence Current Visit: Yes Status: Chronic Qualifiers: Nicotine product type: cigarettes Substance use status: uncomplicated Qualified Code(s): F17.210 - Nicotine dependence, cigarettes, uncomplicated (5) Opioid dependence with withdrawal Current Visit: Yes Status: Chronic Cleared for Admission [facility] - Detox or Rehab [facility] Level of Care: Medically Managed Detox Regimen/Protocol: Methadone/Librium [facility] Breath Alcohol Content Breath Alcohol Content: 0 Urine Drug Screen - Results Drug Screen Negative: Yes Urine Drug Screen Results: THC-Marijuana, OPI-Opiates
[2017-01-28] MEDS ORDERED: guaiFENesin/D-METHORPHAN HB 10 ML UNIT-DOSE CUPS PO PRN (12:50)
[2017-01-28] MEDS ORDERED: LOPERAMIDE HCL 2 MG CAPSULE PO PRN (12:50)
[2017-01-28] MEDS ORDERED: ACETAMINOPHEN 325 MG TABLET (FP) PO PRN (12:50)
[2017-01-28] MEDS ORDERED: P-EPHED 60MG/TRIPROLIDI 2.5MG TABLET PO PRN (12:50)
[2017-01-28] MEDS ORDERED: MENTHOL/PHENOL 1 EACH UD MM PRN (12:50)
[2017-01-28] MEDS ORDERED: MAG HYDROX/AL HYDROX/SIMETH 30 ML UNIT-DOSE CUP PO PRN (12:50)
[2017-01-28] MEDS ORDERED: chlordiazePOXIDE HCL 25 MG CAPSULE PO PRN (12:50)
[2017-01-28] MEDS ORDERED: IBUPROFEN 400 MG TABLET (FP) PO PRN (12:50)
[2017-01-28] MEDS ORDERED: MAGNESIUM CITRATE 300 ML BOTTLE PO PRN (12:50)
[2017-01-28] MEDS ORDERED: MAGNESIUM HYDROX 2400MG/30ML ORAL SUSPENSION 30 ML CUP PO PRN (12:50)
[2017-01-28] MEDS ORDERED: hydrOXYzine PAMOATE 50 MG CAPSULE (FP) PO PRN (12:50)
[2017-01-28] MEDS ORDERED: chlordiazePOXIDE HCL 25 MG CAPSULE PO ONE (13:00)
[2017-01-28] MEDS ORDERED: METHADONE HCL 10 MG TABLET (FOR DETOX USE ONLY) PO ONE ×2 (13:00→23:00)
[2017-01-28] MEDS: ALBUTEROL SO4 18 GM HFA INHALER IH SCH ×3 (13:17→22:30)
[2017-01-28] MEDS: NICOTINE POLACRILEX 4 MG GUM BC PRN ×3 (14:49→22:36)
--- NOTE | 2017-01-28 16:37 | EKG ---
Test Reason : Blood Pressure : / mmHG Vent. Rate : 078 BPM Atrial Rate : 078 BPM P-R Int : 194 ms QRS Dur : 082 ms QT Int : 372 ms P-R-T Axes : 072 091 058 degrees QTc Int : 424 ms NORMAL SINUS RHYTHM RIGHTWARD AXIS BORDERLINE ECG WHEN COMPARED WITH ECG OF 22-OCT-2016 05:51, NO SIGNIFICANT CHANGE WAS FOUND Confirmed by FABIAN MIKE MD ([id number]) on 01/28/2017 4:37:06 PM Referred By: Confirmed By:FABIAN MIKE MD
--- NOTE | 2017-01-28 16:41 | CONSULT ---
[facility] Psychiatric Consult - Data Date of interview: 01/28/17 Admission source: [facility] Identifying data: Pt. is a 51 year old single male, father of two, currently unemployed. This is patient's one of multiple admissions to [facility]. Pt. admitted to 3 detox for heroin and alcohol dependence. Substance Abuse History: Heroin: First used: 37 years of age. Frequency: daily Amount used: 2 bundles. Last used: 01/26/2017. Marijuana: First used: 16 years of age. Frequency: Daily Amount used: $20. Last used: 01/26/2017. Alcohol- First used: 17 years of age. Frequency: Daily Amount used: 2-3 six packs. Last used: 01/26/2017. Cigarettes: Current everyday smoke. Smokes 1/2 per day. Medical History: Asthma, HIV Psychiatric History: Pt. reports h/o one past [facility] for depression. States he was prescribed seroquel 100mg while at [facility]. Pt. denies h/o suicide attempt. Physical/Sexual Abuse/Trauma History: Pt. denies. Additional Comment: Urine Drug Screen Results: THC-Marijuana, OPI-Opiates Mental Status Exam - Mental Status Exam Alert and Oriented to: Time, Place, Person Cognitive Function: Good Patient Appearance: Well Groomed Mood: Hopeful Affect: Mood Congruent Patient Behavior: Appropriate, Cooperative Speech Pattern: Clear, Appropriate Voice Loudness: Normal Thought Process: Goal Oriented Thought Disorder: Present Hallucinations: Denies Suicidal Ideation: Denies Homicidal Ideation: Denies Insight/Judgement: Poor Sleep: Poorly Appetite: Fair Muscle strength/Tone: Normal Gait/Station: Normal Psychiatric Findings - Problem List (Bivins 1, 2,3) (1) Alcohol dependence with uncomplicated withdrawal Current Visit: Yes Status: Acute (2) Opioid dependence with withdrawal Current Visit: Yes Status: Acute (3) Opioid dependence Current Visit: Yes Status: Acute (4) Cannabis dependence Current Visit: Yes Status: Chronic (5) Nicotine dependence Current Visit: Yes Status: Chronic Qualifiers: Nicotine product type: cigarettes Substance use status: uncomplicated Qualified Code(s): F17.210 - Nicotine dependence, cigarettes, uncomplicated (6) Substance induced mood disorder Current Visit: Yes Status: Acute - Initial Treatment Plan Initial Treatment Plan: Psychoeducation provided. Detox in progress. Chart reviewed. Seroquel 50qhs ordered. Pt. reports favorable effect from previously taking seroquel. Side effects and benefits discussed. Verbal consent given. Pt. agreeable with plan.
[2017-01-28] MEDS: chlordiazePOXIDE HCL 25 MG CAPSULE PO SCH ×2 (17:15→22:30)
[2017-01-28 19:23] LABS: URINE LEUK ESTERASE Negative (NEGATIVE)
[2017-01-28] MEDS: THIAMINE HCL 100 MG TABLET (FP) PO SCH (22:30)
[2017-01-28] MEDS: QUEtiapine FUMARATE 50 MG TABLET PO SCH (22:30)
[2017-01-29] MEDS: ALBUTEROL SO4 18 GM HFA INHALER IH SCH ×3 (02:04→10:37)
[2017-01-29] MEDS: chlordiazePOXIDE HCL 25 MG CAPSULE PO SCH ×4 (06:01→23:19)
[2017-01-29] MEDS ORDERED: METHADONE HCL 10 MG TABLET (FOR DETOX USE ONLY) PO SCH (10:00)
[2017-01-29] MEDS ORDERED: DARUNAVIR ETHANOLATE 800 MG TAB PO SCH (10:00)
[2017-01-29 10:12] LABS: MCH 30.7 pg (25.7-33.7); MCHC 33.5 g/dl (32.0-35.9); MEAN CELL VOLUME 91.7 fl (80-96); MEAN PLT VOLUME 8.1 fl (7.5-11.1); PLATELET COUNT 235 K/MM3 (134-434); RDW 15.1 % (11.9-15.9)
[2017-01-29] MEDS: PRENATAL VITAMINS W/ FOLIC ACID TABLET (FP) PO SCH (10:34)
[2017-01-29] MEDS: PATIENT'S OWN MEDICATION (NON-FORMULARY) (Elviteg/Cob/Emtri/Tenof Alafen 1 EACH) PO SCH (10:34)
[2017-01-29] MEDS: NICOTINE POLACRILEX 4 MG GUM BC PRN ×3 (10:36→21:02)
[2017-01-29 10:38] LABS: ALBUMIN 4.2 g/dl (3.4-5.0); ALK PHOS 79 U/L (45-117); ANION GAP 5 (8-16); BILIRUBIN,TOTAL 0.6 mg/dL (0.2-1.0); CALCIUM 9.1 mg/dL (8.5-10.1); CO2 32 mmol/L (21-32); CREATININE 0.9 mg/dL (0.7-1.3); GLUCOSE,RANDOM 103 mg/dL (74-106); SGOT/AST 24 U/L (15-37); SGPT/ALT 34 U/L (12-78)
[2017-01-29] MEDS ORDERED: ALBUTEROL SO4 18 GM HFA INHALER IH PRN (10:39)
--- NOTE | 2017-01-29 12:25 | PN ---
[facility] CIWA - CIWA Score Nausea/Vomitin-No Nausea/No Vomiting Muscle Tremors: 3 Anxiety: 4-Mod. Anxious/Guarded Agitation: 3 Paroxysmal Sweats: 3 Orientation: 0-Oriented Tacttile Disturbances: 2-Mild Itch/Numbness/Burn Auditory Disturbances: 2-Mild Harshness/Frighten Visual Disturbances: 0-None Headache: 0-None Present CIWA-Ar Total Score: 17 [facility] COWS - Scale Resting Pulse: 1= [place] 81-100 Sweatin= Chills/Flushing Restless Observation: 1= Difficult to Sit Still Pupil Size: 0= Normal to Room Light Bone or Joint Aches: 2= Severe Diffuse Aches Runny Nose/ Eye Tearin= Nasal Congestion GI Upset > 30mins: 2= Nausea/Diarrhea Tremor Observation of Outstretched Hands: 0= None Yawning Observation: 2= >3x During Session Anxiety or Irritability: 2=Irritable/Anxious Goose Flesh Skin: 3=Piloerection COWS Score: 15 S Progress Note (SOAP) Subjective: Diarrhea, Interrupted Sleep, Sweating, Body Aches. Objective: PT. A & O X 3, OBSERVED AMBULATING ON UNIT. NO ACUTE DISTRESS. 01/29/17 12:22 Vital Signs Temperature 95.8 F L 01/29/17 10:00 Pulse Rate 96 H 01/29/17 10:00 Respiratory Rate 20 01/29/17 10:00 Blood Pressure 121/76 01/29/17 10:00 O2 Sat by Pulse Oximetry (%) Laboratory Tests 01/28/17 01/29/17 01/29/17 14:50 06:00 06:00 WBC 5.0 RBC 5.08 Hgb 15.6 D Hct 46.6 MCV 91.7 MCH 30.7 MCHC 33.5 RDW 15.1 D Plt Count 235 MPV 8.1 Sodium 138 Potassium 4.4 Chloride 101 Carbon Dioxide 32 Anion Gap 5 L BUN 11 D Creatinine 0.9 Creat Clearance w eGFR > 60 Random Glucose 103 Calcium 9.1 Total Bilirubin 0.6 AST 24 ALT 34 D Alkaline Phosphatase 79 Total Protein 8.0 Albumin 4.2 Ur Leukocyte Esterase Negative RPR Titer 01/29/17 06:00 WBC RBC Hgb Hct MCV MCH MCHC RDW Plt Count MPV Sodium Potassium Chloride Carbon Dioxide Anion Gap BUN Creatinine Creat Clearance w eGFR Random Glucose Calcium Total Bilirubin AST ALT Alkaline Phosphatase Total Protein Albumin Ur Leukocyte Esterase RPR Titer Nonreactive LABS NOTED. UA RESULTS PENDING. 01/29/17 12:24 Assessment: 01/29/17 12:23 WITHDRAWAL SYMPTOMS. Plan: CONTINUE DETOX. INCREASE DAILY PO FLUID INTAKE. PRN IMMODIUM FOR DIARRHEA.
[2017-01-29] MEDS: QUEtiapine FUMARATE 50 MG TABLET PO SCH (23:19)
[2017-01-29] MEDS: THIAMINE HCL 100 MG TABLET (FP) PO SCH (23:19)
[2017-01-30] MEDS: chlordiazePOXIDE HCL 25 MG CAPSULE PO SCH ×2 (06:08→10:16)
[2017-01-30] MEDS: NICOTINE POLACRILEX 4 MG GUM BC PRN ×6 (06:10→23:17)
[2017-01-30] MEDS: PRENATAL VITAMINS W/ FOLIC ACID TABLET (FP) PO SCH (10:16)
[2017-01-30] MEDS: METHADONE HCL 5 MG TABLET (FOR DETOX USE ONLY) PO SCH (10:16)
[2017-01-30] MEDS: PATIENT'S OWN MEDICATION (NON-FORMULARY) (Elviteg/Cob/Emtri/Tenof Alafen 1 EACH) PO SCH (10:16)
[2017-01-30] MEDS: chlordiazePOXIDE 5 MG CAPSULE PO SCH ×2 (16:59→22:26)
--- NOTE | 2017-01-30 17:38 | PN ---
[facility] CIWA - CIWA Score Nausea/Vomitin-No Nausea/No Vomiting Muscle Tremors: 2 Anxiety: 4-Mod. Anxious/Guarded Agitation: 3 Paroxysmal Sweats: 3 Orientation: 0-Oriented Tacttile Disturbances: 0-None Auditory Disturbances: 2-Mild Harshness/Frighten Visual Disturbances: 3-Moderate Sensitivity Headache: 0-None Present CIWA-Ar Total Score: 17 S Progress Note (SOAP) Subjective: Fatigue, Anxious, Tremors. Objective: PT. A & O X 3, OBSERVED AMBULATING ON UNIT. NO ACUTE DISTRESS. 01/30/17 17:32 Vital Signs Temperature 96.5 F L 01/30/17 09:55 Pulse Rate 98 H 01/30/17 09:55 Respiratory Rate 18 01/30/17 09:55 Blood Pressure 114/77 01/30/17 09:55 O2 Sat by Pulse Oximetry (%) Laboratory Tests 01/28/17 01/29/17 01/29/17 14:50 06:00 06:00 WBC 5.0 RBC 5.08 Hgb 15.6 D Hct 46.6 MCV 91.7 MCH 30.7 MCHC 33.5 RDW 15.1 D Plt Count 235 MPV 8.1 Sodium 138 Potassium 4.4 Chloride 101 Carbon Dioxide 32 Anion Gap 5 L BUN 11 D Creatinine 0.9 Creat Clearance w eGFR > 60 Random Glucose 103 Calcium 9.1 Total Bilirubin 0.6 AST 24 ALT 34 D Alkaline Phosphatase 79 Total Protein 8.0 Albumin 4.2 Ur Leukocyte Esterase Negative RPR Titer 01/29/17 06:00 WBC RBC Hgb Hct MCV MCH MCHC RDW Plt Count MPV Sodium Potassium Chloride Carbon Dioxide Anion Gap BUN Creatinine Creat Clearance w eGFR Random Glucose Calcium Total Bilirubin AST ALT Alkaline Phosphatase Total Protein Albumin Ur Leukocyte Esterase RPR Titer Nonreactive LABS NOTED. UA RESULTS PENDING. 01/30/17 17:38 Assessment: 01/30/17 17:32 WITHDRAWAL SYMPTOMS. Plan: CONTINUE DETOX. PATIENT REPORTS THAT HE TAKES PREZISTA + GENVOYA ON A DAILY BASIS AND HAS DONE SO FOR ALMOST TWO YEARS. THIS INFORMATION CONFIRMED BY PHARMACIST JUAN Zafar AT PATIENT'S PHARMACY ([facility], [place], [place] HOWEVER, PER RECOMMENDATION OF [facility] PHARMACIST AND CODE AND TEST CLERK, PREZISTA D/C'D WHILE IN DETOX DUE TO CONFLICT WITH CURRENT H.A.A.R.T. GUIDELINES. PATIENT ADVISED TO FOLLOW-UP WITH MEDICAL PROVIDER DR. KOKO BARRETT OF [facility] ([place], [place] FOR FURTHER EVALUATION OF HIV MEDICATION REGIMEN AFTER DISCHARGE FROM DETOX. PATIENT VERBALIZED UNDERSTANDING OF RECOMMENDATION.
[2017-01-30] MEDS: QUEtiapine FUMARATE 50 MG TABLET PO SCH (22:26)
[2017-01-30] MEDS: THIAMINE HCL 100 MG TABLET (FP) PO SCH (22:26)
[2017-01-31] MEDS: chlordiazePOXIDE 5 MG CAPSULE PO SCH ×2 (05:56→10:00)
[2017-01-31] MEDS: NICOTINE POLACRILEX 4 MG GUM BC PRN ×4 (09:11→22:30)
[2017-01-31] MEDS: METHADONE HCL 5 MG TABLET (FOR DETOX USE ONLY) PO SCH (10:00)
[2017-01-31] MEDS: PATIENT'S OWN MEDICATION (NON-FORMULARY) (Elviteg/Cob/Emtri/Tenof Alafen 1 EACH) PO SCH (10:00)
[2017-01-31] MEDS: PRENATAL VITAMINS W/ FOLIC ACID TABLET (FP) PO SCH (10:00)
--- NOTE | 2017-01-31 17:18 | PN ---
[facility] Progress Note (SOAP) Subjective: Interrupted sleep, anxious, sweating Objective: 01/31/17 17:17 Last Vital Signs Temp Pulse Resp BP Pulse Ox 96.5 F L 98 H 18 148/87 01/31/17 13:56 01/31/17 13:56 01/31/17 13:56 01/31/17 13:56 Laboratory Tests 01/28/17 01/29/17 01/29/17 14:50 06:00 06:00 WBC 5.0 RBC 5.08 Hgb 15.6 D Hct 46.6 MCV 91.7 MCH 30.7 MCHC 33.5 RDW 15.1 D Plt Count 235 MPV 8.1 Sodium 138 Potassium 4.4 Chloride 101 Carbon Dioxide 32 Anion Gap 5 L BUN 11 D Creatinine 0.9 Creat Clearance w eGFR > 60 Random Glucose 103 Calcium 9.1 Total Bilirubin 0.6 AST 24 ALT 34 D Alkaline Phosphatase 79 Total Protein 8.0 Albumin 4.2 Ur Leukocyte Esterase Negative RPR Titer 01/29/17 06:00 WBC RBC Hgb Hct MCV MCH MCHC RDW Plt Count MPV Sodium Potassium Chloride Carbon Dioxide Anion Gap BUN Creatinine Creat Clearance w eGFR Random Glucose Calcium Total Bilirubin AST ALT Alkaline Phosphatase Total Protein Albumin Ur Leukocyte Esterase RPR Titer Nonreactive Labs noted Assessment: 01/31/17 17:18 Withdrawal symptoms Plan: Continue detox
[2017-01-31] MEDS: chlordiazePOXIDE HCL 10 MG CAPSULE PO SCH ×2 (17:26→22:28)
[2017-01-31] MEDS: THIAMINE HCL 100 MG TABLET (FP) PO SCH (22:28)
[2017-01-31] MEDS: QUEtiapine FUMARATE 50 MG TABLET PO SCH (22:28)
[2017-02-01] MEDS: chlordiazePOXIDE HCL 10 MG CAPSULE PO SCH (05:56)
[2017-02-01 06:22] VITALS: BP 132/77; PULSE 91; TEMP 97.6
--- NOTE | 2017-02-01 07:19 | PN ---
S Progress Note Note: INFORMED CLIENT IS SIGNING OUT AMA. CLIENT STATES HE IS TRAVELING AND NEEDS TO LEAVE. AMA FORM WAS SIGNED
--- NOTE | 2017-02-01 07:24 | DS ---
[facility] Detox Discharge Summary Admission Date: 01/28/17 Discharge Date: 02/01/17 - History Present History: Alcohol Dependence, Cannabis Dependence, Opioid Dependence Pertinent Past History: ASTHMA NICOTINE DEPENDENCE HIV - Physical Exam Results Vital Signs: Vital Signs Temperature 97.6 F 02/01/17 06:21 Pulse Rate 91 H 02/01/17 06:21 Respiratory Rate 18 02/01/17 06:21 Blood Pressure 132/77 02/01/17 06:21 O2 Sat by Pulse Oximetry (%) Pertinent Admission Physical Exam Findings: WITHDRAWAL SX'S - Treatment Hospital Course: Discharged Condition Good - Medication Discharge Medications: Ambulatory Orders Quetiapine Fumarate [Seroquel] 100 mg PO HS #30 tablet 10/14/16 Albuterol Sulfate Inhaler - [Ventolin Hfa Inhaler -] 2 inh PO Q4H PRN 10/21/16 Darunavir Ethanolate [Prezista -] 800 mg PO DAILY 10/23/16 Elviteg/Cob/Emtri/Tenof Alafen [Genvoya Tablet] 1 each PO DAILY 10/23/16 Ergocalciferol [Vitamin D2] 50,000 unit PO WEEKLY 10/23/16 - Diagnosis (1) Alcohol dependence with uncomplicated withdrawal Status: Chronic (2) Opioid dependence with withdrawal Status: Chronic (3) Substance-induced sleep disorder Status: Chronic (4) Asthma Status: Chronic Qualifiers: Asthma severity: mild intermittent Asthma complication type: with status asthmaticus Qualified Code(s): J45.22 - Mild intermittent asthma with status asthmaticus (5) Cannabis dependence Status: Chronic (6) HIV (human immunodeficiency virus infection) Status: Chronic (7) Nicotine dependence Status: Chronic Qualifiers: Nicotine product type: cigarettes Substance use status: uncomplicated Qualified Code(s): F17.210 - Nicotine dependence, cigarettes, uncomplicated - AMA Did Patient Leave Against Medical Advice: Yes
[2017-02-01] MEDS ORDERED: METHADONE HCL 10 MG TABLET (FOR DETOX USE ONLY) PO SCH (10:00)
[2017-02-01 12:19] LABS: URINE APPEARANCE Clear; URINE BILIRUBIN Negative (NEGATIVE); URINE BLOOD Negative (NEGATIVE); URINE GLUCOSE (UA) Negative (NEGATIVE); URINE KETONE Negative (NEGATIVE); URINE NITRITE Negative (NEGATIVE); URINE PROTEIN Negative (NEGATIVE); URINE UROBILINOGEN 0.2 (0.2-1.0)
[2017-02-01 12:20] LABS: URINE COLOR YELLOW
[2017-02-02] MEDS ORDERED: METHADONE HCL 5 MG TABLET (FOR DETOX USE ONLY) PO SCH (06:00)
== END 2017-02-01 06:52 | disposition left against medical advice (07) | DRG 770 ==
LOC: YASAS 08:14 → Y3N 12:07
PROVIDERS: ADMIT Internal Medicine; ATTEND Internal Medicine
PROC: HZ2ZZZZ Detoxification Services for Substance Abuse Treatment (ICD-10-PCS; principal; 2017-01-28)
DX: F11.23 Opioid dependence with withdrawal (principal); F10.230 Alcohol dependence with withdrawal, uncomplicated; F12.20 Cannabis dependence, uncomplicated; F17.210 Nicotine dependence, cigarettes, uncomplicated; F19.282 Other psychoactive substance dependence with psychoactive substance-induced sleep disorder; J45.22 Mild intermittent asthma with status asthmaticus; Z21 Asymptomatic human immunodeficiency virus [HIV] infection status
CPT/HCPCS: 36415; 80053; 81003; 85027; 86593; 93005; 93010

== ENCOUNTER 2017-09-06 19:31 | Inpatient (IN) | payer OTHER ==
[2017-09-06 19:46] VITALS: BMI 29.0
--- NOTE | 2017-09-06 20:06 | HP ---
COWS - Scale Resting Pulse: 1= [place] 81-100 Sweatin= Beads of Sweat on Face Restless Observation: 1= Difficult to Sit Still Pupil Size: 0= Normal to Room Light Bone or Joint Aches: 4=Acute Joint/Muscle Pain Runny Nose/ Eye Tearin= None GI Upset > 30mins: 1= Stomach Cramp Tremor Observation: 0= None Yawning Observation: 1= 1-2x During Session Anxiety or Irritability: 2=Irritable/Anxious Goose Flesh Skin: 0=Smooth Skin COWS Score: 13 Admission ROS S - HPI Chief Complaint: SEEKING DETOX FOR WITHDRAWAL SX'S Allergies/Adverse Reactions: Allergies Allergy/AdvReac Type Severity Reaction Status Date / Time amoxicillin Allergy Vomiting Verified 01/28/17 09:59 History of Present Illness: 52 Y.O. MALE WITH HX/O OPIOID DEPENDENCE HERE FOR DETOX. CLIENT IS KNOWN TO THIS PROGRAM. LAST HERE 01/2017. SELF REFERRED. DENIES ANY SIGNIFICANT PERIOD OF CLEAN TIME. DENIES HX/O OVERDOSE, SI/HI, AVH. HX/O HIV DOES NOT HAVE HIS ANTIVIRAL WITH HIM. HE WAS INFORMED THAT HE WILL NOT RECEIVE WHILE HERE PER HOSPITAL POLICY. CLIENT VERBALIZED UNDERSTANDING Exam Limitations: No Limitations - Ebola screening Have you traveled outside of the country in the last 21 days: No Have you had contact with anyone from an Ebola affected area: No Have you been sick,other than usual withdrawal symptoms: No Do you have a fever: No - Review of Systems Constitutional: Chills, Malaise, Night Sweats, Changes in sleep, Weakness EENT: reports: No Symptoms Reported Respiratory: reports: Shortness of Breath (R/T SMOKING), Other (HX/O ASTHMA) Cardiac: reports: No Symptoms Reported GI: reports: Vomiting, Abdominal cramping : reports: No Symptoms Reported Musculoskeletal: reports: Back Pain, Joint Pain Integumentary: reports: No Symptoms Reported Neuro: reports: No Symptoms reported Endocrine: reports: No Symptoms Reported Hematology: reports: No Symptoms Reported Psychiatric: reports: Anxious, Depressed Other Systems: Reviewed and Negative Patient History - Patient Medical History Hx Anemia: No Hx Asthma: Yes Hx Chronic Obstructive Pulmonary Disease (COPD): No Hx Cancer: No Hx Cardiac Disorders: No Hx Congestive Heart Failure: No Hx Hypertension: No Hx Hypercholesterolemia: No Hx Pacemaker: No HX Cerebrovascular Accident: No Hx Seizures: No Hx Dementia: No Hx Diabetes: No Hx Gastrointestinal Disorders: No Hx Liver Disease: No Hx Genitourinary Disorders: No Hx Sexually Transmitted Disorders: No Hx Renal Disease (ESRD): No Hx Thyroid Disease: No Hx Human Immunodeficiency Virus (HIV): Yes (PREZISTA/GENVOYA) Hx Hepatitis C: No (negative) Hx Depression: Yes Hx Suicide Attempt: No Hx Bipolar Disorder: No Hx Schizophrenia: No Other Medical History: ANXIETY/ + PPD 1988 TX'ED W/ B6 AND INH - Patient Surgical History Past Surgical History: Yes Hx Neurologic Surgery: No Hx Cataract Extraction: No Hx Cardiac Surgery: No Hx Lung Surgery: No Hx Breast Surgery: No Hx Breast Biopsy: No Hx Abdominal Surgery: No Hx Appendectomy: No Hx Cholecystectomy: No Hx Genitourinary Surgery: No Hx Section: No Hx Orthopedic Surgery: Yes (jaw fx06/2016) Anesthesia Reaction: No - PPD History Previous Implant?: Yes Documented Results: Positive w/o proof Implanted On Prior [facility] Admission?: No Results: NEG CXR 10/14/16 PPD to be Administered?: No - Smoking Cessation Smoking history: Current every day smoker Have you smoked in the past 12 months: Yes Aproximately how many cigarettes per day: 10 Cigars Per Day: 0 Hx Chewing Tobacco Use: No Initiated information on smoking cessation: Yes 'Breaking Loose' booklet given: 09/06/17 - Substance & Tx. History Hx Alcohol Use: Yes Hx Substance Use: Yes Substance Use Type: Alcohol, Heroin, Marijuana Hx Substance Use Treatment: Yes - Substances Abused HEROIN Route: SNIFFING Frequency: Daily Amount used: 6 BAGS Age of first use: 29 Date of Last Use: 09/06/17 BEER Route: Oral Frequency: Daily Amount used: 1-2 6 PACK Age of first use: 15 Date of Last Use: 09/05/17 THC Route: Smoking Frequency: Daily Amount used: $30 Age of first use: 17 Date of Last Use: 09/06/17 Family Disease History - Family Disease History Family Disease History: Other: Father (alcohol,), Mother (alcohol, ), Brother (no contact) Admission Physical Exam [facility] - Vital Signs Vital Signs: Vital Signs - 24 hr 09/06/17 19:41 Temperature 98.1 F Pulse Rate 95 H Respiratory 18 Rate Blood Pressure 137/92 - Physical General Appearance: Yes: Appropriately Dressed, Sweating, Anxious HEENTM: Yes: EOMI, Normocephalic, Normal Voice, CARIE, Pharynx Normal Respiratory: Yes: Chest Non-Tender, Lungs Clear, Normal Breath Sounds, No Respiratory Distress, No Accessory Muscle Use Neck: Yes: No masses,lesions,Nodules, Supple, Trachea in good position Breast: Yes: Breast Exam Deferred Cardiology: Yes: Regular Rhythm, S1, S2, Tachycardia Abdominal: Yes: Normal Bowel Sounds, Non Tender, Soft, Protuberent Genitourinary: Yes: Within Normal Limits Back: Yes: Normal Inspection Musculoskeletal: Yes: Gait Steady, Back pain (C/O), Other (RLE MALALIGNMENT) Extremities: Yes: Normal Capillary Refill, Normal Inspection, Other (C/O PAIN W / LROM TO LEFT LOWER EXTREMITY) 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 intact, Fully Oriented, Alert, Normal Response , Numbness (TO LLE) Integumentary: Yes: Warm, Moist Lymphatic: Yes: Within Normal Limits - Diagnostic (1) Drug-induced mood disorder Current Visit: Yes Status: Suspected (2) Alcohol dependence with uncomplicated withdrawal Current Visit: Yes Status: Acute (3) Asthma Current Visit: Yes Status: Chronic Qualifiers: Asthma severity: mild Asthma complication type: unspecified (4) Cannabis dependence Current Visit: Yes Status: Chronic (5) HIV (human immunodeficiency virus infection) Current Visit: Yes Status: Chronic Comment: pt DOES NOT HAVE HIS own medication with him. (6) Nicotine dependence Current Visit: Yes Status: Chronic Qualifiers: Nicotine product type: cigarettes Substance use status: uncomplicated Qualified Code(s): F17.210 - Nicotine dependence, cigarettes, uncomplicated (7) Opioid dependence with withdrawal Current Visit: Yes Status: Acute (8) Substance-induced sleep disorder Current Visit: Yes Status: Suspected Cleared for Admission S - Detox or Rehab [facility] Level of Care: Medically Managed Detox Regimen/Protocol: Methadone/Librium Claeared for Rehab Admission: No S Breath Alcohol Content Breath Alcohol Content: 0 Urine Drug Screen - Results Drug Screen Negative: No Urine Drug Screen Results: THC-Marijuana, OPI-Opiates
[2017-09-06] MEDS ORDERED: MAG HYDROX/AL HYDROX/SIMETH 30 ML UNIT-DOSE CUP PO PRN (20:20)
[2017-09-06] MEDS ORDERED: MENTHOL/PHENOL 1 EACH UD MM PRN (20:20)
[2017-09-06] MEDS ORDERED: MAGNESIUM HYDROX 2400MG/30ML ORAL SUSPENSION 30 ML CUP PO PRN (20:20)
[2017-09-06] MEDS ORDERED: IBUPROFEN 400 MG TABLET (FP) PO PRN (20:20)
[2017-09-06] MEDS ORDERED: guaiFENesin/D-METHORPHAN HB 10 ML UNIT-DOSE CUPS PO PRN (20:20)
[2017-09-06] MEDS ORDERED: ACETAMINOPHEN 325 MG TABLET (FP) PO PRN (20:20)
[2017-09-06] MEDS ORDERED: MAGNESIUM CITRATE 300 ML BOTTLE PO PRN (20:20)
[2017-09-06] MEDS ORDERED: hydrOXYzine PAMOATE 50 MG CAPSULE (FP) PO PRN (20:20)
[2017-09-06] MEDS ORDERED: METHADONE HCL 10 MG TABLET (FOR DETOX USE ONLY) PO ONE ×2 (20:20→23:00)
[2017-09-06] MEDS ORDERED: LOPERAMIDE HCL 2 MG CAPSULE PO PRN (20:20)
[2017-09-06] MEDS ORDERED: P-EPHED 60MG/TRIPROLIDI 2.5MG TABLET PO PRN (20:20)
[2017-09-06] MEDS ORDERED: chlordiazePOXIDE HCL 25 MG CAPSULE PO PRN (20:20)
[2017-09-06] MEDS ORDERED: MELATONIN 5 MG TABLETS PO PRN (22:00)
[2017-09-06] MEDS: THIAMINE HCL 100 MG TABLET (FP) PO SCH (22:59)
[2017-09-06] MEDS: chlordiazePOXIDE HCL 25 MG CAPSULE PO SCH (23:00)
[2017-09-07] MEDS ORDERED: ALBUTEROL SO4 2.5/IPRATROPIUM 0.5 INH SOL 3 ML VIAL.NEB. NEB PRN (01:43)
[2017-09-07] MEDS ORDERED: ALBUTEROL SO4 8 GM HFA INHALER IH PRN (01:43)
[2017-09-07] MEDS: NICOTINE POLACRILEX 2 MG GUM BUC PRN ×5 (01:52→20:24)
[2017-09-07] MEDS: chlordiazePOXIDE HCL 25 MG CAPSULE PO SCH ×4 (05:31→22:13)
[2017-09-07 09:35] LABS: URINE APPEARANCE CLEAR; URINE BILIRUBIN NEGATIVE (<2.0 mg/dL); URINE COLOR YELLOW; URINE GLUCOSE (UA) NEGATIVE (NEGATIVE); URINE KETONE NEGATIVE (NEGATIVE); URINE LEUK ESTERASE NEGATIVE (NEGATIVE); URINE NITRITE NEGATIVE (NEGATIVE); URINE PROTEIN NEGATIVE (NEGATIVE); URINE UROBILINOGEN 4.0 E.U/dl mg/dL (0.2-1.0)
[2017-09-07 09:41] LABS: HEMATOCRIT 41.8 % (35.4-49); HEMOGLOBIN 14.4 GM/dL (11.7-16.9); MCH 30.6 pg (25.7-33.7); MCHC 34.5 g/dl (32.0-35.9); MEAN CELL VOLUME 88.8 fl (80-96); MEAN PLT VOLUME 7.5 fl (7.5-11.1); PLATELET COUNT 253 K/MM3 (134-434); RBC 4.71 M/mm3 (4.00-5.60); RDW 14.2 % (11.9-15.9); WHITE BLOOD COUNT 4.5 K/mm3 (4.0-10.0)
[2017-09-07] MEDS ORDERED: METHADONE HCL 10 MG TABLET (FOR DETOX USE ONLY) PO SCH (10:00)
[2017-09-07] MEDS: PRENATAL VITAMINS W/ FOLIC ACID TABLET (FP) PO SCH (10:23)
[2017-09-07] MEDS: NICOTINE 14 MG/24 HOURS TOPICAL PATCH TD SCH (10:23)
[2017-09-07 10:35] LABS: ALBUMIN 3.7 g/dl (3.4-5.0); ANION GAP 8 (8-16); BLOOD UREA NITROGEN 20 mg/dL (7-18); CALCIUM 8.6 mg/dL (8.5-10.1); CHLORIDE 105 mmol/L (98-107); CO2 28 mmol/L (21-32); GLUCOSE,RANDOM 91 mg/dL (74-106); POTASSIUM 4.2 mmol/L (3.5-5.1); SODIUM 141 mmol/L (136-145)
[2017-09-07 10:38] LABS: ALK PHOS 71 U/L (45-117); BILIRUBIN,TOTAL 0.3 mg/dL (0.2-1.0); SGOT/AST 86 U/L (15-37); SGPT/ALT 47 U/L (12-78); TOT PROT 7.4 g/dl (6.4-8.2)
--- NOTE | 2017-09-07 13:57 | EKG ---
Test Reason : Blood Pressure : / mmHG Vent. Rate : 078 BPM Atrial Rate : 078 BPM P-R Int : 190 ms QRS Dur : 084 ms QT Int : 374 ms P-R-T Axes : 058 077 038 degrees QTc Int : 426 ms NORMAL SINUS RHYTHM NORMAL ECG WHEN COMPARED WITH ECG OF 28-JAN-2017 14:23, NO SIGNIFICANT CHANGE WAS FOUND Confirmed by Malick Cervantes MD ([id number]) on 09/07/2017 1:57:03 PM Referred By: Confirmed By:Malick Cervantes MD
--- NOTE | 2017-09-07 14:27 | PN ---
S COWS - Scale Resting Pulse: 1= VT 81-100 Sweatin= Chills/Flushing Restless Observation: 1= Difficult to Sit Still Pupil Size: 0= Normal to Room Light Bone or Joint Aches: 4=Acute Joint/Muscle Pain Runny Nose/ Eye Tearin= Nasal Congestion GI Upset > 30mins: 0= None Tremor Observation of Outstretched Hands: 0= None Yawning Observation: 1= 1-2x During Session Anxiety or Irritability: 2=Irritable/Anxious Goose Flesh Skin: 3=Piloerection COWS Score: 14 BHS Progress Note (SOAP) Subjective: Interrupted Sleep, Body Aches, Anxious, Fatigue. Objective: 09/07/17 14:25 Vital Signs Temperature 96.1 F L 09/07/17 13:14 Pulse Rate 83 09/07/17 13:14 Respiratory Rate 18 09/07/17 13:14 Blood Pressure 134/87 09/07/17 13:14 O2 Sat by Pulse Oximetry (%) Laboratory Tests 09/07/17 09/07/17 09/07/17 07:00 07:00 07:00 WBC 4.5 RBC 4.71 Hgb 14.4 Hct 41.8 MCV 88.8 MCH 30.6 MCHC 34.5 RDW 14.2 Plt Count 253 MPV 7.5 Sodium 141 Potassium 4.2 Chloride 105 Carbon Dioxide 28 Anion Gap 8 BUN 20 H Creatinine 1.0 Creat Clearance w eGFR > 60 Random Glucose 91 Calcium 8.6 Total Bilirubin 0.3 AST 86 H D ALT 47 D Alkaline Phosphatase 71 Total Protein 7.4 Albumin 3.7 Urine Color Urine Appearance Urine pH Ur Specific [place] Urine Protein Urine Glucose (UA) Urine Ketones Urine Blood Urine Nitrite Urine Bilirubin Urine Urobilinogen Ur Leukocyte Esterase RPR Titer Nonreactive 09/07/17 08:30 WBC RBC Hgb Hct MCV MCH MCHC RDW Plt Count MPV Sodium Potassium Chloride Carbon Dioxide Anion Gap BUN Creatinine Creat Clearance w eGFR Random Glucose Calcium Total Bilirubin AST ALT Alkaline Phosphatase Total Protein Albumin Urine Color Yellow Urine Appearance Clear Urine pH 6.0 Ur Specific [place] 1.024 Urine Protein Negative Urine Glucose (UA) Negative Urine Ketones Negative Urine Blood Negative Urine Nitrite Negative Urine Bilirubin Negative Urine Urobilinogen 4.0 e.u/dl Ur Leukocyte Esterase Negative RPR Titer LABS NOTED. Assessment: 09/07/17 14:26 WITHDRAWAL SYMPTOMS. Plan: CONTINUE DETOX.
--- NOTE | 2017-09-07 16:40 | CONSULT ---
[facility] Psychiatric Consult - Data Date of interview: 09/07/17 Admission source: [facility] Identifying data: Patient is a 52 year old single male, father of ten, unemployed, living with the mother of his children and supported by public assistance. This is one of multiple admissions for patient. Pt admitted to for alcohol, marijuana, and opiate dependence. Substance Abuse History: - Smoking Cessation. Smoking history: Current every day smoker. Have you smoked in the past 12 months: Yes. Aproximately how many cigarettes per day: 10. Cigars Per Day: 0. Hx Chewing Tobacco Use: No. Initiated information on smoking cessation: Yes. 'Breaking Loose' booklet given : 09/06/17. - Substance & Tx. History. Hx Alcohol Use: Yes. Hx Substance Use : Yes. Substance Use Type: Alcohol, Heroin, Marijuana. Hx Substance Use Treatment: Yes. - Substances Abused. HEROIN. Route: SNIFFING. Frequency: Daily. Amount used: 6 BAGS. Age of first use: 29. Date of Last Use: . BEER. Route: Oral. Frequency: Daily. Amount used: 1-2 6 PACK. Age of first use: 15. Date of Last Use: 09/05/17. THC. Route: Smoking. Frequency: Daily. Amount used: $30. Age of first use: 17. Date of Last Use: Medical History: Asthma, HIV, jaw fx/2016 Psychiatric History: Patient reports one psychiatric hospitalization at [facility] in 2008. States he was diagnosed with paranoid schizophrenia and was prescribed seroquel 300mg qhs. Pt. denies follow up care after discharge from [facility]. No psychosis noted. Most recently took seroquel while in detox in January of 2017. Pt. requesting seroquel for insomnia. Physical/Sexual Abuse/Trauma History: Denies. Mental Status Exam - Mental Status Exam Alert and Oriented to: Time, Place, Person Cognitive Function: Good Patient Appearance: Well Groomed Mood: Hopeful, Euthymic Affect: Mood Congruent Patient Behavior: Cooperative Speech Pattern: Appropriate Voice Loudness: Normal Thought Process: Intact, Goal Oriented Thought Disorder: Not Present Hallucinations: Denies Suicidal Ideation: Denies Homicidal Ideation: Denies Insight/Judgement: Poor Sleep: Poorly Appetite: Fair Muscle strength/Tone: Normal Gait/Station: Normal Psychiatric Findings - Problem List ([place] 1, 2,3) (1) Alcohol dependence with uncomplicated withdrawal Current Visit: Yes Status: Acute (2) Opioid dependence with withdrawal Current Visit: Yes Status: Acute (3) Cannabis dependence Current Visit: Yes Status: Chronic (4) Substance-induced sleep disorder Current Visit: Yes Status: Acute (5) Substance induced mood disorder Current Visit: Yes Status: Acute - Initial Treatment Plan Initial Treatment Plan: Psychoeducation provided. Detoxification in progress. Seroquel 50mg qhs ordered. Benefits and side effects discussed. Verbal consent given.
[2017-09-07] MEDS: NAPROXEN 375 MG TABLET (FP) PO SCH (22:13)
[2017-09-07] MEDS: THIAMINE HCL 100 MG TABLET (FP) PO SCH (22:13)
[2017-09-07] MEDS: QUEtiapine FUMARATE 50 MG TABLET PO SCH (22:14)
[2017-09-08] MEDS: chlordiazePOXIDE HCL 25 MG CAPSULE PO SCH ×3 (05:47→17:32)
[2017-09-08] MEDS: METHADONE HCL 5 MG TABLET (FOR DETOX USE ONLY) PO SCH (10:24)
[2017-09-08] MEDS: PRENATAL VITAMINS W/ FOLIC ACID TABLET (FP) PO SCH (10:24)
[2017-09-08] MEDS: NICOTINE 14 MG/24 HOURS TOPICAL PATCH TD SCH (10:24)
[2017-09-08] MEDS: NAPROXEN 375 MG TABLET (FP) PO SCH ×2 (10:25→22:45)
[2017-09-08] MEDS: NICOTINE POLACRILEX 2 MG GUM BUC PRN ×4 (12:13→22:49)
--- NOTE | 2017-09-08 13:00 | PN ---
BHS COWS - Scale Resting Pulse: 0= OR 80 or Below Sweatin= Chills/Flushing Restless Observation: 1= Difficult to Sit Still Pupil Size: 0= Normal to Room Light Bone or Joint Aches: 2= Severe Diffuse Aches Runny Nose/ Eye Tearin= None GI Upset > 30mins: 0= None Tremor Observation of Outstretched Hands: 0= None Yawning Observation: 1= 1-2x During Session Anxiety or Irritability: 2=Irritable/Anxious Goose Flesh Skin: 3=Piloerection COWS Score: 10 BHS Progress Note (SOAP) Subjective: Body Aches, Fatigue, Interrupted Sleep, Anxious. Objective: PATIENT A & O X 3, OBSERVED AMBULATING ON UNIT. NO ACUTE DISTRESS. 09/08/17 12:59 Vital Signs Temperature 97.3 F L 09/08/17 09:01 Pulse Rate 73 09/08/17 09:01 Respiratory Rate 18 09/08/17 09:01 Blood Pressure 106/70 09/08/17 09:01 O2 Sat by Pulse Oximetry (%) Laboratory Tests 09/07/17 09/07/17 09/07/17 07:00 07:00 07:00 WBC 4.5 RBC 4.71 Hgb 14.4 Hct 41.8 MCV 88.8 MCH 30.6 MCHC 34.5 RDW 14.2 Plt Count 253 MPV 7.5 Sodium 141 Potassium 4.2 Chloride 105 Carbon Dioxide 28 Anion Gap 8 BUN 20 H Creatinine 1.0 Creat Clearance w eGFR > 60 Random Glucose 91 Calcium 8.6 Total Bilirubin 0.3 AST 86 H D ALT 47 D Alkaline Phosphatase 71 Total Protein 7.4 Albumin 3.7 Urine Color Urine Appearance Urine pH Ur Specific [place] Urine Protein Urine Glucose (UA) Urine Ketones Urine Blood Urine Nitrite Urine Bilirubin Urine Urobilinogen Ur Leukocyte Esterase RPR Titer Nonreactive 09/07/17 08:30 WBC RBC Hgb Hct MCV MCH MCHC RDW Plt Count MPV Sodium Potassium Chloride Carbon Dioxide Anion Gap BUN Creatinine Creat Clearance w eGFR Random Glucose Calcium Total Bilirubin AST ALT Alkaline Phosphatase Total Protein Albumin Urine Color Yellow Urine Appearance Clear Urine pH 6.0 Ur Specific [place] 1.024 Urine Protein Negative Urine Glucose (UA) Negative Urine Ketones Negative Urine Blood Negative Urine Nitrite Negative Urine Bilirubin Negative Urine Urobilinogen 4.0 e.u/dl Ur Leukocyte Esterase Negative RPR Titer LABS NOTED. Assessment: 09/08/17 12:59 WITHDRAWAL SYMPTOMS. Plan: CONTINUE DETOX.
[2017-09-08] MEDS: QUEtiapine FUMARATE 50 MG TABLET PO SCH (22:45)
[2017-09-08] MEDS: THIAMINE HCL 100 MG TABLET (FP) PO SCH (22:45)
[2017-09-08] MEDS: chlordiazePOXIDE 5 MG CAPSULE PO SCH (22:46)
[2017-09-09] MEDS: chlordiazePOXIDE 5 MG CAPSULE PO SCH ×3 (05:36→17:35)
[2017-09-09] MEDS: NAPROXEN 375 MG TABLET (FP) PO SCH ×2 (10:14→22:15)
[2017-09-09] MEDS: PRENATAL VITAMINS W/ FOLIC ACID TABLET (FP) PO SCH (10:15)
[2017-09-09] MEDS: METHADONE HCL 5 MG TABLET (FOR DETOX USE ONLY) PO SCH (10:15)
[2017-09-09] MEDS: NICOTINE 14 MG/24 HOURS TOPICAL PATCH TD SCH (10:16)
[2017-09-09] MEDS: NICOTINE POLACRILEX 2 MG GUM BUC PRN ×3 (12:31→20:59)
--- NOTE | 2017-09-09 16:08 | PN ---
BHS Progress Note (SOAP) Subjective: Fatigue, Body Aches. Objective: PATIENT A & O X 3, OBSERVED AMBULATING ON UNIT. NO ACUTE DISTRESS. 09/09/17 16:07 Vital Signs Temperature 96.6 F L 09/09/17 13:15 Pulse Rate 89 09/09/17 13:15 Respiratory Rate 20 09/09/17 13:15 Blood Pressure 133/74 09/09/17 13:15 O2 Sat by Pulse Oximetry (%) Laboratory Tests 09/07/17 09/07/17 09/07/17 07:00 07:00 07:00 WBC 4.5 RBC 4.71 Hgb 14.4 Hct 41.8 MCV 88.8 MCH 30.6 MCHC 34.5 RDW 14.2 Plt Count 253 MPV 7.5 Sodium 141 Potassium 4.2 Chloride 105 Carbon Dioxide 28 Anion Gap 8 BUN 20 H Creatinine 1.0 Creat Clearance w eGFR > 60 Random Glucose 91 Calcium 8.6 Total Bilirubin 0.3 AST 86 H D ALT 47 D Alkaline Phosphatase 71 Total Protein 7.4 Albumin 3.7 Urine Color Urine Appearance Urine pH Ur Specific [place] Urine Protein Urine Glucose (UA) Urine Ketones Urine Blood Urine Nitrite Urine Bilirubin Urine Urobilinogen Ur Leukocyte Esterase RPR Titer Nonreactive 09/07/17 08:30 WBC RBC Hgb Hct MCV MCH MCHC RDW Plt Count MPV Sodium Potassium Chloride Carbon Dioxide Anion Gap BUN Creatinine Creat Clearance w eGFR Random Glucose Calcium Total Bilirubin AST ALT Alkaline Phosphatase Total Protein Albumin Urine Color Yellow Urine Appearance Clear Urine pH 6.0 Ur Specific [place] 1.024 Urine Protein Negative Urine Glucose (UA) Negative Urine Ketones Negative Urine Blood Negative Urine Nitrite Negative Urine Bilirubin Negative Urine Urobilinogen 4.0 e.u/dl Ur Leukocyte Esterase Negative RPR Titer LABS NOTED. Assessment: 09/09/17 16:07 WITHDRAWAL SYMPTOMS. Plan: CONTINUE DETOX. INCREASE DAILY PO FLUID INTAKE. PATIENT SCHEDULED FOR D/C TOMORROW.
[2017-09-09] MEDS: THIAMINE HCL 100 MG TABLET (FP) PO SCH (22:15)
[2017-09-09] MEDS: chlordiazePOXIDE HCL 10 MG CAPSULE PO SCH (22:16)
[2017-09-09] MEDS: QUEtiapine FUMARATE 50 MG TABLET PO SCH (22:16)
[2017-09-10] MEDS: chlordiazePOXIDE HCL 10 MG CAPSULE PO SCH (05:26)
[2017-09-10] MEDS: NICOTINE POLACRILEX 2 MG GUM BUC PRN (05:28)
[2017-09-10 09:21] VITALS: BP 124/86; PULSE 96; TEMP 97.4
[2017-09-10] MEDS ORDERED: METHADONE HCL 10 MG TABLET (FOR DETOX USE ONLY) PO SCH (10:00)
--- NOTE | 2017-09-10 21:40 | PN ---
BHS Progress Note (SOAP) Subjective: Patient denies current Detox symptoms and reports that he feels well overall. Objective: PATIENT A & O X 3, OBSERVED AMBULATING ON UNIT. NO ACUTE DISTRESS. 09/10/17 21:39 Vital Signs Temperature 97.4 F L 09/10/17 09:20 Pulse Rate 96 H 09/10/17 09:20 Respiratory Rate 18 09/10/17 09:20 Blood Pressure 124/86 09/10/17 09:20 O2 Sat by Pulse Oximetry (%) Laboratory Tests 09/07/17 09/07/17 09/07/17 07:00 07:00 07:00 WBC 4.5 RBC 4.71 Hgb 14.4 Hct 41.8 MCV 88.8 MCH 30.6 MCHC 34.5 RDW 14.2 Plt Count 253 MPV 7.5 Sodium 141 Potassium 4.2 Chloride 105 Carbon Dioxide 28 Anion Gap 8 BUN 20 H Creatinine 1.0 Creat Clearance w eGFR > 60 Random Glucose 91 Calcium 8.6 Total Bilirubin 0.3 AST 86 H D ALT 47 D Alkaline Phosphatase 71 Total Protein 7.4 Albumin 3.7 Urine Color Urine Appearance Urine pH Ur Specific [place] Urine Protein Urine Glucose (UA) Urine Ketones Urine Blood Urine Nitrite Urine Bilirubin Urine Urobilinogen Ur Leukocyte Esterase RPR Titer Nonreactive 09/07/17 08:30 WBC RBC Hgb Hct MCV MCH MCHC RDW Plt Count MPV Sodium Potassium Chloride Carbon Dioxide Anion Gap BUN Creatinine Creat Clearance w eGFR Random Glucose Calcium Total Bilirubin AST ALT Alkaline Phosphatase Total Protein Albumin Urine Color Yellow Urine Appearance Clear Urine pH 6.0 Ur Specific [place] 1.024 Urine Protein Negative Urine Glucose (UA) Negative Urine Ketones Negative Urine Blood Negative Urine Nitrite Negative Urine Bilirubin Negative Urine Urobilinogen 4.0 e.u/dl Ur Leukocyte Esterase Negative RPR Titer LABS NOTED. Assessment: 09/10/17 21:39 COMPLETION OF DETOX REGIMEN. Plan: PATIENT SCHEDULED FOR DISCHARGE FROM DETOX UNIT TODAY.
--- NOTE | 2017-09-10 21:44 | DS ---
[facility] Detox Discharge Summary Admission Date: 09/06/17 Discharge Date: 09/10/17 - History Present History: Alcohol Dependence, Cannabis Dependence, Opioid Dependence Additional Comments: PATIENT WILL RETURN TO [facility] [place]) FOR OUTPATIENT PRIMARY MEDICAL CARE. PATIENT WILL ATTEND LOCAL OUTPATIENT 12-STEP / NA / AA SUPPORT GROUP MEETINGS FOR AFTERCARE. PATIENT WAS DISCHARGED FROM DETOX UNIT IN STABLE MEDICAL CONDITION. Pertinent Past History: Asthma, History of Depression, Anxiety, HIV, History of Positive PPD (Treated), Nicotine Dependence. - Physical Exam Results Vital Signs: Vital Signs Temperature 97.4 F L 09/10/17 09:20 Pulse Rate 96 H 09/10/17 09:20 Respiratory Rate 18 09/10/17 09:20 Blood Pressure 124/86 09/10/17 09:20 O2 Sat by Pulse Oximetry (%) Pertinent Admission Physical Exam Findings: WITHDRAWAL SYMPTOMS. Laboratory Tests 09/07/17 09/07/17 09/07/17 07:00 07:00 07:00 WBC 4.5 RBC 4.71 Hgb 14.4 Hct 41.8 MCV 88.8 MCH 30.6 MCHC 34.5 RDW 14.2 Plt Count 253 MPV 7.5 Sodium 141 Potassium 4.2 Chloride 105 Carbon Dioxide 28 Anion Gap 8 BUN 20 H Creatinine 1.0 Creat Clearance w eGFR > 60 Random Glucose 91 Calcium 8.6 Total Bilirubin 0.3 AST 86 H D ALT 47 D Alkaline Phosphatase 71 Total Protein 7.4 Albumin 3.7 Urine Color Urine Appearance Urine pH Ur Specific [place] Urine Protein Urine Glucose (UA) Urine Ketones Urine Blood Urine Nitrite Urine Bilirubin Urine Urobilinogen Ur Leukocyte Esterase RPR Titer Nonreactive 09/07/17 08:30 WBC RBC Hgb Hct MCV MCH MCHC RDW Plt Count MPV Sodium Potassium Chloride Carbon Dioxide Anion Gap BUN Creatinine Creat Clearance w eGFR Random Glucose Calcium Total Bilirubin AST ALT Alkaline Phosphatase Total Protein Albumin Urine Color Yellow Urine Appearance Clear Urine pH 6.0 Ur Specific [place] 1.024 Urine Protein Negative Urine Glucose (UA) Negative Urine Ketones Negative Urine Blood Negative Urine Nitrite Negative Urine Bilirubin Negative Urine Urobilinogen 4.0 e.u/dl Ur Leukocyte Esterase Negative RPR Titer LABS NOTED. - Treatment Hospital Course: Detox Protocol Followed, Detoxed Safely, Responded well, Discharged Condition Good Patient has Accepted a Rehab Referral to: PT WILL ATEND LOCAL OUTPATIENT 12-STEP /NA/AA SUPPORT GROUP MEETINGS. - Medication Discharge Medications: Ambulatory Orders Albuterol Sulfate Inhaler - [Ventolin Hfa Inhaler -] 2 inh PO Q4H PRN 10/21/16 Darunavir Ethanolate [Prezista -] 800 mg PO DAILY 10/23/16 Elviteg/Cob/Emtri/Tenof Alafen [Genvoya Tablet] 1 each PO DAILY 10/23/16 Ergocalciferol [Vitamin D2] 50,000 unit PO WEEKLY 10/23/16 - Diagnosis (1) Alcohol dependence with uncomplicated withdrawal Status: Acute (2) Asthma Status: Chronic Qualifiers: Asthma severity: mild Asthma persistence: intermittent Asthma complication type: unspecified Qualified Code(s): J45.20 - Mild intermittent asthma, uncomplicated (3) Cannabis dependence Status: Chronic (4) HIV (human immunodeficiency virus infection) Status: Chronic (5) Nicotine dependence Status: Chronic Qualifiers: Nicotine product type: cigarettes Substance use status: uncomplicated Qualified Code(s): F17.210 - Nicotine dependence, cigarettes, uncomplicated (6) Opioid dependence with withdrawal Status: Acute (7) Drug-induced mood disorder Status: Suspected (8) Substance-induced sleep disorder Status: Acute (9) Substance induced mood disorder Status: Acute - AMA Did Patient Leave Against Medical Advice: No
[2017-09-11] MEDS ORDERED: METHADONE HCL 5 MG TABLET (FOR DETOX USE ONLY) PO SCH (06:00)
== END 2017-09-10 09:26 | disposition home or self-care (01) | DRG 773 ==
LOC: YASAS 19:31 → Y3N 21:46
PROVIDERS: ADMIT Surgery; ATTEND Surgery
PROC: HZ2ZZZZ Detoxification Services for Substance Abuse Treatment (ICD-10-PCS; principal; 2017-09-06)
DX: F11.23 Opioid dependence with withdrawal (principal); F10.230 Alcohol dependence with withdrawal, uncomplicated; F12.20 Cannabis dependence, uncomplicated; F17.210 Nicotine dependence, cigarettes, uncomplicated; F19.24 Other psychoactive substance dependence with psychoactive substance-induced mood disorder; F19.282 Other psychoactive substance dependence with psychoactive substance-induced sleep disorder; Z21 Asymptomatic human immunodeficiency virus [HIV] infection status; J45.20 Mild intermittent asthma, uncomplicated; Z88.0 Allergy status to penicillin
CPT/HCPCS: 36415; 80053; 81003; 85027; 86593; 93005; 93010

== ENCOUNTER 2021-02-24 11:24 | Inpatient (IN) | payer OTHER ==
[2021-02-24] MEDS ORDERED: ACETAMINOPHEN 325 MG TABLET (FP) PO PRN ×2 (11:49)
[2021-02-24] MEDS ORDERED: IBUPROFEN 400 MG TABLET (FP) PO PRN (11:49)
[2021-02-24] MEDS ORDERED: MENTHOL/PHENOL 1 EACH UD MM PRN (11:49)
[2021-02-24] MEDS ORDERED: MAGNESIUM HYDROX 2400MG/30ML ORAL SUSPENSION 30 ML CUP PO PRN (11:49)
[2021-02-24] MEDS ORDERED: MAG HYDROX/AL HYDROX/SIMETH 30 ML UNIT-DOSE CUP PO PRN (11:49)
[2021-02-24] MEDS ORDERED: MAGNESIUM CITRATE 300 ML BOTTLE PO PRN (11:49)
[2021-02-24] MEDS ORDERED: ONDANSETRON *ODT* 4 MG TABLET SL PRN (11:49)
[2021-02-24] MEDS ORDERED: METHOCARBAMOL 500 MG TABLET PO PRN (11:49)
[2021-02-24] MEDS ORDERED: BISMUTH SUBSALICYLATE 262 MG/15 ML BTL PO PRN (11:49)
[2021-02-24] MEDS ORDERED: ALBUTEROL SO4 HFA INHALER IH PRN (11:51)
[2021-02-24] MEDS: PRENATAL VITAMINS W/ FOLIC ACID TABLET (FP) PO SCH (12:17)
[2021-02-24 13:40] LABS: HEMATOCRIT 41.8 % (35.4-49); HEMOGLOBIN 14.4 GM/dL (11.7-16.9); MCH 30.9 pg (25.7-33.7); MCHC 34.6 g/dl (32.0-35.9); MEAN CELL VOLUME 89.4 fl (80-96); MEAN PLT VOLUME 6.8 fl (7.5-11.1); PLATELET COUNT 285 10^3/uL (134-434); RBC 4.67 M/mm3 (4.00-5.60); RDW 15.5 % (11.9-15.9); WHITE BLOOD COUNT 5.5 K/mm3 (4.0-10.0)
[2021-02-24 13:53] LABS: ALBUMIN 3.7 g/dl (3.4-5.0); BLOOD UREA NITROGEN 9.7 mg/dL (7-18)
[2021-02-24 13:57] LABS: TOT PROT 7.7 g/dl (6.4-8.2)
[2021-02-24 14:09] LABS: BILIRUBIN,TOTAL 0.4 mg/dL (0.2-1)
[2021-02-24] MEDS: hydrOXYzine PAMOATE 25 MG CAPSULE (FP) PO SCH ×3 (15:06→22:54)
[2021-02-24] MEDS: NICOTINE 14 MG/24 HOURS TOPICAL PATCH TD SCH (15:16)
[2021-02-24 19:50] VITALS: BMI 59.9
[2021-02-24] MEDS ORDERED: THIAMINE HCL 100 MG TABLET (FP) PO SCH (22:00)
[2021-02-24] MEDS ORDERED: MELATONIN 5 MG TABLETS PO SCH (22:00)
[2021-02-24] MEDS: NICOTINE 10 MG CARTRIDGE (INHALER) IH PRN (22:55)
[2021-02-25] MEDS: NICOTINE 10 MG CARTRIDGE (INHALER) IH PRN (07:38)
[2021-02-25] MEDS: hydrOXYzine PAMOATE 25 MG CAPSULE (FP) PO SCH ×2 (07:39→10:50)
[2021-02-25] MEDS ORDERED: ELVITEG/COB/EMTRI/TENOF (GENVOYA) TABLET (NF) PO SCH (08:00)
[2021-02-25] MEDS ORDERED: DARUNAVIR ETHANOLATE 800 MG TAB PO SCH (08:00)
[2021-02-25 09:47] VITALS: BP 132/77; PULSE 69; TEMP 97.7
[2021-02-25] MEDS ORDERED: methaDONE 40 MG, methaDONE 10 MG PO SCH (10:30)
[2021-02-25] MEDS ORDERED: methaDONE HCL 10 MG TABLET PO SCH (10:30)
[2021-02-25] MEDS ORDERED: methaDONE HCL 40 MG DISPERSABLE TABLET ONE (10:49)
[2021-02-25] MEDS ORDERED: methaDONE HCL 10 MG TABLET ONE (10:49)
[2021-02-25] MEDS: PRENATAL VITAMINS W/ FOLIC ACID TABLET (FP) PO SCH (10:50)
[2021-02-25] MEDS: NICOTINE 14 MG/24 HOURS TOPICAL PATCH TD SCH (10:50)
== END 2021-02-25 12:40 | disposition home or self-care (01) | DRG 773 ==
LOC: YASAS 11:24 → Y3N 13:32
PROVIDERS: ADMIT Allergy & Immunology; ATTEND Allergy & Immunology
PROC: HZ2ZZZZ Detoxification Services for Substance Abuse Treatment (ICD-10-PCS; principal; 2021-02-24)
DX: F10.230 Alcohol dependence with withdrawal, uncomplicated (principal); F11.23 Opioid dependence with withdrawal; F13.230 Sedative, hypnotic or anxiolytic dependence with withdrawal, uncomplicated; F17.210 Nicotine dependence, cigarettes, uncomplicated; F19.282 Other psychoactive substance dependence with psychoactive substance-induced sleep disorder; F19.24 Other psychoactive substance dependence with psychoactive substance-induced mood disorder; F32.9 Major depressive disorder, single episode, unspecified; Z21 Asymptomatic human immunodeficiency virus [HIV] infection status; J45.20 Mild intermittent asthma, uncomplicated; Z88.0 Allergy status to penicillin
CPT/HCPCS: 36415; 80053; 85027; 86780; C9803-CS; U0003; U0005